=== PATIENT | female | born 1975 | race Caucasian/White ===

== ENCOUNTER 2017-04-16 06:40 | Inpatient (IN) | payer BC ==
[2017-04-16] MEDS ORDERED: ONDANSETRON 4 MG/2 ML VIAL IVP ONE (06:59)
[2017-04-16] MEDS ORDERED: Sodium Chloride 0.9% 1,000 ML PRIMARY IV ONE (06:59)
[2017-04-16] MEDS ORDERED: MORPHINE SULFATE 4 MG/1 ML IVP ONE (06:59)
--- NOTE | 2017-04-16 07:05 | PDOC ---
Nausea/Vomiting/Diarrhea HPI - General Chief Complaint: Nausea / Vomiting / Diarrhea Stated Complaint: VOMITTING/ BODY ACHES/CONGESTION/?HERNIA Date Seen by Provider: 04/16/17 Time Seen by Provider: 07:00 Source: POSITIVE: Patient Exam Limitations: POSITIVE: No limitations Nurse's Notes Reviewed & Considered: Yes - History of Present Illness Initial Comments: Patient comes in this morning with right lower quadrant abdominal pain. Patient with nausea vomiting and diarrhea that have been ongoing since 11:00 yesterday morning. She has myalgias, and headache. She denies any fever chills or sweats, no chest pain no shortness of breath, she does have dysuria. 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 She states this patient is a 90 pound elderly male. Body Location Affected: REPORTS: Abdomen Timing: REPORTS: Abrupt Duration: >24 hours Severity: Moderate Quality: REPORTS: "Pain", Sharpness, Stabbing, Throbbing, Tenderness Abdominal Pain Onset Location: REPORTS: RLQ Abdominal Pain Radiation: REPORTS: Periumbilical Context: REPORTS: Lifting Modifying Factors: improves with: Nothing Associated Symptoms: REPORTS: Vomiting, Diarrhea, Cramping, Aching Similar Symptoms Previously: Yes Recent Care Received: REPORTS: Denies Any Prior Injuries Related to Current Complaint?: No - Patient Home Medications Home Medications: Home Medications Sumatriptan Succinate [Imitrex] 25 mg PO QD #20 tab 06/20/16 Citalopram Hydrobromide [Citalopram HBr] 1 tab PO DAILY #90 tab 11/05/16 Lisinopril 1 tab PO DAILY #90 tab 11/05/16 Montelukast Sodium [Singulair] 1 tab PO DAILY #90 tab 11/05/16 Doxycycline Hyclate 100 mg PO BID #10 cap 04/18/17 Fluticasone Propionate [Flonase Allergy Relief] 9.9 ml NS DAILY #1 spray.susp - Patient Allergies Allergies/Adverse Reactions: Allergies Allergy/AdvReac Type Severity Reaction Status Date / Time citric acid Allergy rash Verified 04/18/17 08:24 codeine Allergy heat Verified 04/18/17 08:24 palpatations erythromycin base Allergy rash Verified 04/18/17 08:24 gluten Allergy stomache Verified 04/18/17 08:24 pain erythromycin lactobionate AdvReac rash Verified 04/18/17 08:24 [From Erythrocin] Penicillins AdvReac rash Verified 04/18/17 08:24 Past Medical History - heen HEENT History: Denies History Cardiovascular History: Hypertension, Previous TN Additional Cardiovasular History: PATIENT DENIES ACTUAL TN, STATES THAT THIS OCCURED IN MOBILE AND THEY SAID IT WAS DUE TO STRESS AND NOT AN TN Respiratory History: Asthma, COPD, Sleep Apnea, Home Oxygen Use, Home CPAP Use, Other (please comment) Additional Respiratory History: ALLERGIES. 2 LITERS IN BIPAP Gastrointestinal History: Celiac Disease Additional Gastrointestinal History: 12/06 HAD INCARCERATED HERNIA REPAIR. PT STATES THEY REMOVED A SMALL PORTION OF HER BOWEL Genitourinary History: Denies History Endocrine History: Denies History Musculoskeletal History: Arthritis, Gout Prosthesis or Implant: No Neurological History: Migraines Additional Neurological History: WEEK AND HALF AGO Blood Disorders: Denies History Psychiatric History: Anxiety Disorders History of Sexually Transmitted Diseases: No Cancer History: Denies History History of MDRO: Unknown History of Other Communicable Diseases: No Alcohol Use: Rarely Substance Use Type: None Previous Surgical History: Yes Type / Date of Surgery: 12/06 INCARCERATED HERNIA WITH BOWEL RESECTION. T&A. GALLBLADDER. ORAL SURGERY. TOTAL HYST. ophorectomy w/ several prior D and C. INGUINAL HERNIA. KIDNEY STONE EXT. UMBILICAL HERNIA Anesthesia Reactions: No Malignant Hyperthermia: No Significant Family History: Cancer Additional Family History: on fallopian tubes ROS - Limitations ROS Limitations: No Limitations Constitution: REPORTS: Denies Symptoms Cardiovascular: REPORTS: Denies Cardiac Symptoms Respiratory: REPORTS: Denies Resp Symptoms Neurological: REPORTS: Denies Neuro Symptoms Gastrointestinal: REPORTS: Abdominal Pain, Nausea, Vomitting, Diarrhea Endocrine: REPORTS: Denies Symptoms Musculoskeletal: REPORTS: Muscle Aches Genitourinary: REPORTS: Dysuria Eyes: REPORTS: Denies Symptoms ENT: REPORTS: Denies Symptoms Skin: REPORTS: Denies Skin Symptoms Lympathic: REPORTS: Denies Lympathic Symptoms Immunologic: POSITIVE: Denies Symptoms Psychiatric: POSITIVE: Denies Psych Symptoms Nausea/Vomiting/Diarrhea Exam - General Appearance General Appearance: POSITIVE: Alert, Cooperative, No Evidence of Trauma, Mild Distress - HEENT HEENT: POSITIVE: Head Inspection Nml, Eyes Inspection Nml, Ears Inspection Nml, Nose Inspection Nml, Oral/Dental Inspect. Nml, Pharynx Inspect. Nml, PERRL, EOMI - Neck Neck: POSITIVE: Supple, Normal Inspection, Non Tender - Respiratory Respiratory: POSITIVE: No Respiratory Distress, Breath Sounds Normal, Chest Non- Tender - Cardiovascular Cardiovascular: POSITIVE: Regular Rate and Rhythm, Heart Sounds Normal, Equal Pulses, Strong Pulses - Chest Chest: POSITIVE: Non Tender - Abdomen Abdomen: Soft: (All Quadrants), No Splenomegaly: (All Quadrants), No Hepatomegaly: (All Quadrants), No Guarding: (All Quadrants), No Rebound: (All Quadrants), No Palpable Pulse: (All Quadrants), No Palpabale Mass: (All Quadrants), No Distention: (All Quadrants), No Rigidity: (All Quadrants), Tenderness Noted: (RLQ), Hyperactive Bowel Sounds: (All Quadrants) - Back Back: POSITIVE: Normal Inspection - Skin Skin: POSITIVE: Intact, Normal For Race, Warm, Dry, No Rash - Extremities Extremity: Non-Tender: (All Extremities), Normal ROM: (All Extremities), Normal Inspection: (All Extremities) - Neurological / Psychological Neurological: POSITIVE: Affect Apporpriate, Oriented X3 N/V/D Progress - Results Reviewed by me Xrays/CTs/US Reviewed by me: Yes Discussed with Radiologist: Yes Lab Results Reviewed: Yes Lab Results:: Laboratory Results 04/16/17 04/16/17 04/16/17 Range/Units 07:05 07:30 07:32 WBC 7.85 (4.8-10.8) 10^3/uL RBC 4.43 (4.20-5.40) 10^6/uL Hgb 13.8 (12.0-16.0) g/dL Hct 40.1 (37.0-47.0) % MCV 90.5 (81-99) FL MCH 31.2 H (27-31) PG MCHC 34.4 (33-37) g/dL RDW Std Deviation 41.7 (39-50) fL RDW Coeff of Saul 12.8 (11.5-14.5) % Plt Count 217 (140-350) 10*3/uL MPV 10.8 (7.4-12.2) FL Immature Gran % (Auto) 0.5 (0-5) % Neut % (Auto) 74.5 (50-80) % Lymph % (Auto) 11.6 (10-50) % [place] % (Auto) 11.0 (5-15) % Eos % (Auto) 1.9 (0-8) % Baso % (Auto) 0.5 (0-1) % Immature Gran # (Auto) 0.04 10*3/UL Neut # (Auto) 5.85 10*3/UL Lymph # (Auto) 0.91 10*3/uL [place] # (Auto) 0.86 H (0.3-0.8) 10*3/UL Eos # (Auto) 0.15 10*3/UL Baso # (Auto) 0.04 10*3/UL WBC Morphology Comment Normal morphology (NORM) Plt Morphology Comment Normal morphology (NORM) RBC Morph Comment Normal morphology (NORM) PT (9.7-11.4) secs INR (0.00-5.90) N/A D-Dimer 0.45 (0.00-0.59) mg/L VBG pH 7.45 H (7.32-7.42) VBG pCO2 33 L (45-55) mmHg VBG HCO3 23 (22-26) mmol/L VBG Base Excess -2 (-2-2) MMOL/L Sodium 138 (135-145) meq/L Potassium 4.3 (3.8-5.2) meq/L Chloride 104 (98-112) meq/L Carbon Dioxide 23 (23-33) meq/L Anion Gap 11 (5-20) BUN 13 (7-22) mg/dL Creatinine 0.8 (0.50-1.20) mg/dL Estimated GFR > 60 (>60 ml/min/1.73m(2)) BUN/Creatinine Ratio 16.25 (6-20) Glucose 121 H (78-110) mg/dL Mean Blood Glucose mg/dL Hemoglobin A1c (4.2-6.0) % Calculated Osmolality 286.0 (267-292) mOsm/kg Lactic Acid 1.4 (0.70-2.10) MMOL/L Calcium 10.8 H (8.7-10.7) mg/dL Magnesium 2.0 (1.6-2.4) mg/dL Total Bilirubin 1.5 H (0.3-1.2) mg/dL AST 29 (8-39) IU/L ALT 49 (9-52) IU/L Alkaline Phosphatase 68 (38-126) IU/L Troponin I (< 0.040) ng/mL C-Reactive Protein 1.4 H (0.0-0.9) mg/dL Total Protein 7.6 (6.1-8.0) g/dL Albumin 4.5 (3.5-4.8) g/dL Globulin 3.1 (2.50-4.10) g/dL Albumin/Globulin Ratio 1.40 (1.3-2.0) mg/g Triglycerides (44-200) mg/dL Cholesterol (120-200) mg/dL LDL Cholesterol, Calc mg/dL VLDL Cholesterol (0-40) mg/dL HDL Cholesterol (40-150) mg/dL Cholesterol/HDL Ratio (0-4.0) RATIO Lipase 58 (23-300) IU/L Ur Collection Type Clean catch urine Urine Color Yellow Urine Clarity Clear (CLEAR) Urine pH 7.5 (5.0-8.5) Ur Specific [place] 1.020 (1.005-1.030) Urine Protein Negative (NEG) mg/dl Urine Glucose (UA) Negative (NEG) mg/dL Urine Ketones Negative (NEG) Urine Occult Blood Negative (NEG) Urine Nitrate Negative (NEG) Urine Bilirubin Negative (NEG) Urine Urobilinogen 1.0 (0.2) EU/dL Ur Leukocyte Esterase Negative (NEG) Ur Culture Indicated? Culture not set 04/16/17 04/16/17 04/16/17 Range/Units 08:20 14:14 16:22 WBC (4.8-10.8) 10^3/uL RBC (4.20-5.40) 10^6/uL Hgb (12.0-16.0) g/dL Hct (37.0-47.0) % MCV (81-99) FL MCH (27-31) PG MCHC (33-37) g/dL RDW Std Deviation (39-50) fL RDW Coeff of Saul (11.5-14.5) % Plt Count (140-350) 10*3/uL MPV (7.4-12.2) FL Immature Gran % (Auto) (0-5) % Neut % (Auto) (50-80) % Lymph % (Auto) (10-50) % [place] % (Auto) (5-15) % Eos % (Auto) (0-8) % Baso % (Auto) (0-1) % Immature Gran # (Auto) 10*3/UL Neut # (Auto) 10*3/UL Lymph # (Auto) 10*3/uL [place] # (Auto) (0.3-0.8) 10*3/UL Eos # (Auto) 10*3/UL Baso # (Auto) 10*3/UL WBC Morphology Comment (NORM) Plt Morphology Comment (NORM) RBC Morph Comment (NORM) PT 10.7 (9.7-11.4) secs INR 1.04 (0.00-5.90) N/A D-Dimer (0.00-0.59) mg/L VBG pH (7.32-7.42) VBG pCO2 (45-55) mmHg VBG HCO3 (22-26) mmol/L VBG Base Excess (-2-2) MMOL/L Sodium (135-145) meq/L Potassium (3.8-5.2) meq/L Chloride (98-112) meq/L Carbon Dioxide (23-33) meq/L Anion Gap (5-20) BUN (7-22) mg/dL Creatinine (0.50-1.20) mg/dL Estimated GFR (>60 ml/min/1.73m(2)) BUN/Creatinine Ratio (6-20) Glucose (78-110) mg/dL Mean Blood Glucose 86.161 mg/dL Hemoglobin A1c 5.17 (4.2-6.0) % Calculated Osmolality (267-292) mOsm/kg Lactic Acid 1.4 (0.70-2.10) MMOL/L Calcium (8.7-10.7) mg/dL Magnesium (1.6-2.4) mg/dL Total Bilirubin (0.3-1.2) mg/dL AST (8-39) IU/L ALT (9-52) IU/L Alkaline Phosphatase (38-126) IU/L Troponin I < 0.012 < 0.012 (< 0.040) ng/mL C-Reactive Protein (0.0-0.9) mg/dL Total Protein (6.1-8.0) g/dL Albumin (3.5-4.8) g/dL Globulin (2.50-4.10) g/dL Albumin/Globulin Ratio (1.3-2.0) mg/g Triglycerides 121 (44-200) mg/dL Cholesterol 160 (120-200) mg/dL LDL Cholesterol, Calc 101.800 mg/dL VLDL Cholesterol 24 (0-40) mg/dL HDL Cholesterol 34 L (40-150) mg/dL Cholesterol/HDL Ratio 4.70 H (0-4.0) RATIO Lipase (23-300) IU/L Ur Collection Type Urine Color Urine Clarity (CLEAR) Urine pH (5.0-8.5) Ur Specific [place] (1.005-1.030) Urine Protein (NEG) mg/dl Urine Glucose (UA) (NEG) mg/dL Urine Ketones (NEG) Urine Occult Blood (NEG) Urine Nitrate (NEG) Urine Bilirubin (NEG) Urine Urobilinogen (0.2) EU/dL Ur Leukocyte Esterase (NEG) Ur Culture Indicated? 04/16/17 04/17/17 Range/Units 20:10 06:27 WBC 5.79 (4.8-10.8) 10^3/uL RBC 4.26 (4.20-5.40) 10^6/uL Hgb 13.3 (12.0-16.0) g/dL Hct 39.4 (37.0-47.0) % MCV 92.5 (81-99) FL MCH 31.2 H (27-31) PG MCHC 33.8 (33-37) g/dL RDW Std Deviation 42.9 (39-50) fL RDW Coeff of Saul 13.0 (11.5-14.5) % Plt Count 191 (140-350) 10*3/uL MPV 10.9 (7.4-12.2) FL Immature Gran % (Auto) 0.9 (0-5) % Neut % (Auto) 64.2 (50-80) % Lymph % (Auto) 18.5 (10-50) % [place] % (Auto) 13.8 (5-15) % Eos % (Auto) 1.6 (0-8) % Baso % (Auto) 1.0 (0-1) % Immature Gran # (Auto) 0.05 10*3/UL Neut # (Auto) 3.72 10*3/UL Lymph # (Auto) 1.07 10*3/uL [place] # (Auto) 0.80 (0.3-0.8) 10*3/UL Eos # (Auto) 0.09 10*3/UL Baso # (Auto) 0.06 10*3/UL WBC Morphology Comment Normal morphology (NORM) Plt Morphology Comment Normal morphology (NORM) RBC Morph Comment Normal morphology (NORM) PT (9.7-11.4) secs INR (0.00-5.90) N/A D-Dimer (0.00-0.59) mg/L VBG pH (7.32-7.42) VBG pCO2 (45-55) mmHg VBG HCO3 (22-26) mmol/L VBG Base Excess (-2-2) MMOL/L Sodium 139 (135-145) meq/L Potassium 4.1 (3.8-5.2) meq/L Chloride 106 (98-112) meq/L Carbon Dioxide 24 (23-33) meq/L Anion Gap 9 (5-20) BUN 8 (7-22) mg/dL Creatinine 0.7 (0.50-1.20) mg/dL Estimated GFR > 60 (>60 ml/min/1.73m(2)) BUN/Creatinine Ratio 11.42 (6-20) Glucose 107 (78-110) mg/dL Mean Blood Glucose mg/dL Hemoglobin A1c (4.2-6.0) % Calculated Osmolality 285.0 (267-292) mOsm/kg Lactic Acid (0.70-2.10) MMOL/L Calcium 10.0 (8.7-10.7) mg/dL Magnesium (1.6-2.4) mg/dL Total Bilirubin (0.3-1.2) mg/dL AST (8-39) IU/L ALT (9-52) IU/L Alkaline Phosphatase (38-126) IU/L Troponin I < 0.012 (< 0.040) ng/mL C-Reactive Protein (0.0-0.9) mg/dL Total Protein (6.1-8.0) g/dL Albumin (3.5-4.8) g/dL Globulin (2.50-4.10) g/dL Albumin/Globulin Ratio (1.3-2.0) mg/g Triglycerides (44-200) mg/dL Cholesterol (120-200) mg/dL LDL Cholesterol, Calc mg/dL VLDL Cholesterol (0-40) mg/dL HDL Cholesterol (40-150) mg/dL Cholesterol/HDL Ratio (0-4.0) RATIO Lipase (23-300) IU/L Ur Collection Type Urine Color Urine Clarity (CLEAR) Urine pH (5.0-8.5) Ur Specific [place] (1.005-1.030) Urine Protein (NEG) mg/dl Urine Glucose (UA) (NEG) mg/dL Urine Ketones (NEG) Urine Occult Blood (NEG) Urine Nitrate (NEG) Urine Bilirubin (NEG) Urine Urobilinogen (0.2) EU/dL Ur Leukocyte Esterase (NEG) Ur Culture Indicated? EKG Interpretation:: POSITIVE: Normal Sinus Rhythm - Patient's Progress Pain Medication Addressed: POSITIVE: Yes School/Work Release Addressed: POSITIVE: Yes Status: POSITIVE: Improved MDM / ED Course: Patient was examined, an IV started, blood drawn and sent to the lab for studies , radiographic and EKG studies were obtained. During the patient's time. Emergency room she developed chest pain therefore EKG and chest x-rays were obtained as well as troponin. Findings: Troponin is normal, d-dimer is normal, ABC is unremarkable. While awaiting results of CT scan my shift ended and I turned over care to Dr. Abdifatah Mojica. Assessment: This is a case of abdominal pain with nausea and vomiting. She also has chest pain that is relieved with nitroglycerin. Plan: Please see Dr. Mojica's dictation for plan, I have contacted Dr. Paris for admission pending results of CT scan. Patient Care Time - Estimated PCT Patient Care Time (In Minutes): 45 Vital Signs - VS Reviewed Vital Signs Reviewed: Yes Discharge Clinical Impression: Abdominal pain, Chest pain Discharge Disposition: Admit to Observation Condition: Fair
[2017-04-16 07:39] LABS: VENOUS PH 7.45 (7.32-7.42)
[2017-04-16 07:56] LABS: BASOPHILS # (AUTO) 0.04 10*3/UL; BASOPHILS % (AUTO) 0.5 % (0-1); EOSINOPHILS # (AUTO) 0.15 10*3/UL; EOSINOPHILS % (AUTO) 1.9 % (0-8); HEMATOCRIT 40.1 % (37.0-47.0); HEMOGLOBIN 13.8 g/dL (12.0-16.0); LYMPHOCYTES # (AUTO) 0.91 10*3/uL; MEAN CORPUSCULAR HEMOGLOBIN 31.2 PG (27-31); MEAN CORPUSCULAR HGB CONC 34.4 g/dL (33-37); MEAN CORPUSCULAR VOLUME 90.5 FL (81-99); MEAN PLATELET VOLUME 10.8 FL (7.4-12.2); MONOCYTES # (AUTO) 0.86 10*3/UL (0.3-0.8); NEUTROPHILS # (AUTO) 5.85 10*3/UL; NEUTROPHILS % (AUTO) 74.5 % (50-80); RED BLOOD COUNT 4.43 10^6/uL (4.20-5.40)
[2017-04-16 07:58] LABS: PLATELET MORPHOLOGY COMMENT NORMAL MORPHOLOGY (NORM); RBC MORPHOLOGY COMMENT NORMAL MORPHOLOGY (NORM); WBC MORPHOLOGY COMMENT NORMAL MORPHOLOGY (NORM)
[2017-04-16 07:59] LABS: BILIRUBIN,URINE NEGATIVE (NEG); CLARITY,URINE CLEAR (CLEAR); COLOR,URINE YELLOW; GLUCOSE, URINE (UA) NEGATIVE (NEG); NITRATE,URINE NEGATIVE (NEG); OCCULT BLOOD,URINE NEGATIVE (NEG); PH,URINE 7.5 (5.0-8.5); PROTEIN,URINE NEGATIVE (NEG)
[2017-04-16 08:12] LABS: BLOOD UREA NITROGEN 13 mg/dL (7-22); BUN/CREATININE RATIO 16.25 (6-20); C-REACTIVE PROTEIN 1.4 mg/dL (0.0-0.9); CALCIUM 10.8 mg/dL (8.7-10.7); EST GLOMERULAR FILTRATION > 60 (>60 ml/min/1.73m(2)); LIPASE 58 IU/L (23-300); SERUM ALBUMIN 4.5 g/dL (3.5-4.8)
[2017-04-16] MEDS ORDERED: ASPIRIN 81 MG (BABY) CHEWABLE TABLET PO ONE (08:15)
[2017-04-16] MEDS ORDERED: ASPIRIN 81 MG (BABY) CHEWABLE TABLET ONE (08:19)
[2017-04-16] MEDS ORDERED: NITROGLYCERIN 0.4 MG SL TAB (BOTTLE OF 3) SL ONE (08:19)
[2017-04-16] MEDS: NITROGLYCERIN 0.4 MG SL TAB (BOTTLE OF 3) SL ONE ×3 (08:21→08:31)
--- NOTE | 2017-04-16 08:23 | EKG ---
[address] [place] [address] Measurements Intervals [place] Rate: 94 P: 76 [place]: 166 QRS: -16 QRSD: 98 T: 55 QT: 369 QTc: 421 Interpretive Statements SINUS RHYTHM Compared to ECG 12/09/2015 00:15:57 Right ventricular hypertrophy no longer present ST (T wave) deviation no longer present Atrial abnormality no longer present Electronically Signed On 04-16-17 12:54:16 MDT by Raul Rushing [email or web address]
--- NOTE | 2017-04-16 09:05 | DI ---
XR CXR 1VW,04/16/2017 8:14 AM: Clinical History: Chest pain Previous Exam: None at this facility. Findings: A single frontal radiograph of the chest is obtained, and demonstrates clear lungs. There is mild car diomegaly. Overlying EKG leads are seen. Impression: No acute disease.
--- NOTE | 2017-04-16 09:46 | DI ---
CT CTA CHEST NONCORONARY W/WO,04/16/2017 8:44 AM: Clinical History: New onset of chest pain and shortness of breath. Previous Exam: None at this facility. Findings: Multiple helically acquired CT images are obtained through the chest following a CT chest angiogram p rotocol, and demonstrate some subsegmental atelectasis in the lung bases. The pulmonary arteries are normal without filling defect or truncation to suggest pulmonary embolism. There is a 3.4 cm simple cyst noted within the superior pole of the left kidney. Diffuse degenerative changes of the spine are noted. Endplate degenerative changes are noted as well. Impression: 1. No evidence of pulmonary embolism.
--- NOTE | 2017-04-16 09:53 | DI ---
CT ABD W/CN AND PELVIS W/CN,04/16/2017 6:59 AM: Clinical History: Right lower quadrant pain Previous Exam: December 09, 2015 Findings: Multiple helically acquired CT images are obtained through the abdomen and pelvis following the intra venous administration of 95 cc of Isovue 300, and demonstrate diffuse degenerative changes of the lum bar spine. There is some facet arthropathy noted. There are defects involving the anterior abdominal wall one of these was to the left of midline and w as seen on the prior exam is still visible, but is smaller and contains a very small segment of small bowel. There is a new larger ventral hernia measuring 4.4 cm just to the right of midline with protrusion of omental fat and multiple loops of small bowel. Patient is status post cholecystectomy. The urinary bladder is unremarkable. There is no free air nor free fluid. There is no mesenteric or retroperitoneal lymphadenopathy. The appendix is normal. There is no evidence of small bowel obstruction. There are a few prominent mesenteric lymph nodes, but these are stable when compared with the examina tion from 2016. There is no free air. The lung bases are clear. Impression: 1. Very small residual hernia to the left of midline containing a very short segment of small bowel w ithout obstruction. 2. New 4.4 cm hernia to the right of midline containing multiple loops of small bowel.
[2017-04-16] MEDS ORDERED: NORMAL SALINE 10 ML SYRINGE FLUSH IVP PRN (10:23)
[2017-04-16] MEDS ORDERED: ONDANSETRON 4 MG/2 ML VIAL IVP PRN (10:23)
[2017-04-16] MEDS ORDERED: NITROGLYCERIN 0.4 MG SL TAB (BOTTLE OF 3) SL PRN (10:23)
[2017-04-16] MEDS ORDERED: SUMAtriptan Tab 25 MG TAB PO PRN (10:23)
[2017-04-16] MEDS ORDERED: LIDOCAINE W/ SODIUM BICARB 0.5 ML SYR SUBD PRN (10:23)
[2017-04-16 10:36] LABS: CHOL/HDL RATIO 4.7 RATIO (0-4.0); LDL CHOLESTEROL,CALCULATED 101.8 mg/dL
--- NOTE | 2017-04-16 15:42 | PDOC ---
History and Physical - History of Present Illness Date and Time of Service: 04/16/2017, 1535 Chief Complaint: Patient seen and evaluated earlier with the complaint of nausea , vomiting and abdominal pain History of Present Illness: This very pleasant 41-year-old female who has morbid obesity, obstructive sleep apnea, amongst other issues, who states that she developed nausea and vomiting fairly acutely last night. She noticed some right lower quadrant pain in the mid quadrant and lower quadrant. It was somewhat close to the umbilicus. She' s had a cholecystectomy in the past, a hysterectomy, and a hernia repaired in the past that was incarcerated. It was an incisional hernia and was umbilical. The patient wondered if those 2 were related, but denied any changes in bowel movements. She had some mild tenderness to palpation on exam, but otherwise no other symptoms. She felt flushed, but ran a temperature of around 98-99. She has had incarcerated hernias before and thought this might be giving her problems now or that she had developed a new one. She had some chest pain that responded to nitroglycerin in relation to the nausea and vomiting and all of her symptoms seem to be better later this morning from when she presented in the emergency room. IV fluids and nitroglycerin seemed to help the most. Past Medical History Medical History: Migraines. Depression. COPD. Anxiety. Celiac disease. Sleep apnea. Hypertension. Asthma. Morbid obesity with body mass index greater than 50 Surgical History: Laparoscopic oophorectomy. Laparoscopic-assisted hysterectomy. Umbilical/incisional herniorrhaphy. Laparoscopic cholecystectomy. Pertinent Family History: No major problems of heart disease in the family. Past Social History: Does not smoke or have children. She is . 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 Occasionally drinks alcohol but rarely. Tobacco Use: Never Smoker Substance Use Type: None Alcohol Use: Rarely Medication / Allergies Home Medications: Home Medications Medication Instructions Recorded Confirmed Type Promethazine HCl 1 tab PO Q4-6H #30 tab 06/20/16 04/16/17 [facility] Sumatriptan Succinate [Imitrex] 25 mg PO QD #20 tab 06/20/16 04/16/17 Clinic Citalopram Hydrobromide 1 tab PO DAILY #90 tab 11/05/16 04/16/17 Clinic [Citalopram Hbr] Lisinopril 1 tab PO DAILY #90 tab 11/05/16 04/16/17 Clinic Montelukast Sodium [Singulair] 1 tab PO DAILY #90 tab 11/05/16 04/16/17 Clinic Plexus Slim 1 unit PO DAILY 04/16/17 04/16/17 History Allergies/Adverse Reactions: Allergies Allergy/AdvReac Type Severity Reaction Status Date / Time citric acid Allergy rash Verified 04/16/17 10:50 codeine Allergy heat Verified 04/16/17 10:50 palpatations erythromycin base Allergy rash Verified 04/16/17 10:50 gluten Allergy stomache Verified 04/16/17 10:50 pain erythromycin lactobionate AdvReac rash Verified 04/16/17 10:50 [From Erythrocin] Penicillins AdvReac rash Verified 04/16/17 10:50 Review of Systems - Review of Systems All Systems: Reviewed & No Additional Complaints Except as Stated (I did a 12 point review systems and it was negative other than that discussed in history of present illness and then noted below.) - Constitutional Constitutional: REPORTS: Fever/Chills (No fevers but did have chills) - Respiratory Respiratory: DENIES: Negative System Review, Cough, Sputum, Dyspnea At Rest, Dyspnea with Exertion, Pleuritic Pain, Hemoptysis, Wheezing, Other, See HPI - Cardiovascular Cardiovascular: REPORTS: Chest Pain (Atypical and in the setting of nausea and vomiting. Resolved with nitroglycerin and has not recurred since.) - Gastrointestinal Gastrointestinal / Abdominal: REPORTS: Nausea, Vomiting, Abdominal Pain - Genitourinary Genitourinary: DENIES: Negative System Review, Pain, Burning, Hematuria, Incontinence, Urgency, Hesitant Stream, Decreased Stream, Nocutria, Discharge, Sexual Dyfunction, Other, See HPI - Musculoskeletal Musculoskeletal: REPORTS: Joint Pain - Hips (Joint pain in her hips.) - Neurological Neurologic: DENIES: Negative System Review, Headache, Numbness/Paresthesia, Tremors, Weakness, Seizures, Head Trauma, LOC, Dizziness, Confusion, Memory Loss , Difficulty Walking, Incoordination, Other, See HPI - Additonal Details Additional ROS Details: Has sleep apnea and is BiPAP dependent at night. Exam - Vitals Vital Signs: Vital Signs Temperature 98.0 F Temperature Source Temporal Artery Scan Pulse Rate [Pulse Oximeter] 87 Pulse Rate 89 Respiratory Rate 20 Blood Pressure [Left Radial 125/69 Artery] Blood Pressure 144/82 Pulse Ox 94 Oxygen Delivery Method Room Air Height 4 ft 9 in Weight 269 lb 6.4 oz - General General Appearance: POSITIVE: No Acute Distress, Cooperative, Morbidly Obese Additional General Exam Details: Appears pickwickian on exam. - Head Head Exam: POSITIVE: Normal Inspection, Normocephalic, Atraumatic - Eye Eye Exam: POSITIVE: No Scleral Icterus - ENT ENT Exam: POSITIVE: Normal Exam, Mucous Membranes Dry - Neck Neck Exam: POSITIVE: Normal Inspection, No Tenderness, No Thyromegaly - Respiratory Respiratory Exam: POSITIVE: Clear to Auscultation - Bilaterally, Breathing Non Labored, Normal to Percussion and Palpation - Cardiovascular Cardiovascular Exam: POSITIVE: RRR, No Murmur, No Clicks, No Gallops, No Rubs, No JVD - GI/Abdominal GI/Abdominal Exam: POSITIVE: Normal Bowel Sounds, Non Distended, Soft, Hernia ( Patient has apparent umbilical hernia. Somewhat tender to the right and lower than the umbilicus on exam.) - Rectal Rectal Exam: POSITIVE: Deferred - External Exam: POSITIVE: Deferred Exam: POSITIVE: Deferred - Extremities Extremities Exam: POSITIVE: No Clubbing Present, No Edema Present, No Cyanosis Present - Back Back Exam: POSITIVE: Normal Inspection, No CVA Tenderness - Neurological Neurological Exam: POSITIVE: Alert, Oriented x 3, No Facial Droop, Speech Intact / Clear, Moves All Extremities Equally - Psychiatric Psychiatric Exam: POSITIVE: Normal Affect, Normal Mood Results - Labs CBC and BMP: 04/16/17 07:30 04/16/17 07:30 Labs - Last 24 Hours: Laboratory Results 04/16/17 Range/Units 14:14 Troponin I < 0.012 (< 0.040) ng/mL Laboratory Results 04/16/17 04/16/17 04/16/17 Range/Units 07:05 07:30 07:32 WBC 7.85 (4.8-10.8) 10^3/uL RBC 4.43 (4.20-5.40) 10^6/uL Hgb 13.8 (12.0-16.0) g/dL Hct 40.1 (37.0-47.0) % MCV 90.5 (81-99) FL MCH 31.2 H (27-31) PG MCHC 34.4 (33-37) g/dL RDW Std Deviation 41.7 (39-50) fL RDW Coeff of Saul 12.8 (11.5-14.5) % Plt Count 217 (140-350) 10*3/uL MPV 10.8 (7.4-12.2) FL Immature Gran % (Auto) 0.5 (0-5) % Neut % (Auto) 74.5 (50-80) % Lymph % (Auto) 11.6 (10-50) % Placer % (Auto) 11.0 (5-15) % Eos % (Auto) 1.9 (0-8) % Baso % (Auto) 0.5 (0-1) % Immature Gran # (Auto) 0.04 10*3/UL Neut # (Auto) 5.85 10*3/UL Lymph # (Auto) 0.91 10*3/uL Placer # (Auto) 0.86 H (0.3-0.8) 10*3/UL Eos # (Auto) 0.15 10*3/UL Baso # (Auto) 0.04 10*3/UL WBC Morphology Comment Normal morphology (NORM) Plt Morphology Comment Normal morphology (NORM) RBC Morph Comment Normal morphology (NORM) D-Dimer 0.45 (0.00-0.59) mg/L VBG pH 7.45 H (7.32-7.42) VBG pCO2 33 L (45-55) mmHg VBG HCO3 23 (22-26) mmol/L VBG Base Excess -2 (-2-2) MMOL/L Sodium 138 (135-145) meq/L Potassium 4.3 (3.8-5.2) meq/L Chloride 104 (98-112) meq/L Carbon Dioxide 23 (23-33) meq/L Anion Gap 11 (5-20) BUN 13 (7-22) mg/dL Creatinine 0.8 (0.50-1.20) mg/dL Estimated GFR > 60 (>60 ml/min/1.73m(2)) BUN/Creatinine Ratio 16.25 (6-20) Glucose 121 H (78-110) mg/dL Calculated Osmolality 286.0 (267-292) mOsm/kg Lactic Acid 1.4 (0.70-2.10) MMOL/L Calcium 10.8 H (8.7-10.7) mg/dL Magnesium 2.0 (1.6-2.4) mg/dL Total Bilirubin 1.5 H (0.3-1.2) mg/dL AST 29 (8-39) IU/L ALT 49 (9-52) IU/L Alkaline Phosphatase 68 (38-126) IU/L Troponin I (< 0.040) ng/mL C-Reactive Protein 1.4 H (0.0-0.9) mg/dL Total Protein 7.6 (6.1-8.0) g/dL Albumin 4.5 (3.5-4.8) g/dL Globulin 3.1 (2.50-4.10) g/dL Albumin/Globulin Ratio 1.40 (1.3-2.0) mg/g Triglycerides (44-200) mg/dL Cholesterol (120-200) mg/dL LDL Cholesterol, Calc mg/dL VLDL Cholesterol (0-40) mg/dL HDL Cholesterol (40-150) mg/dL Cholesterol/HDL Ratio (0-4.0) RATIO Lipase 58 (23-300) IU/L Ur Collection Type Pending Urine Color Yellow Urine Clarity Clear (CLEAR) Urine pH 7.5 (5.0-8.5) Ur Specific [place] 1.020 (1.005-1.030) Urine Protein Negative (NEG) mg/dl Urine Glucose (UA) Negative (NEG) mg/dL Urine Ketones Negative (NEG) Urine Occult Blood Negative (NEG) Urine Nitrate Negative (NEG) Urine Bilirubin Negative (NEG) Urine Urobilinogen 1.0 (0.2) EU/dL Ur Leukocyte Esterase Negative (NEG) Ur Culture Indicated? Pending 04/16/17 04/16/17 Range/Units 08:20 14:14 WBC (4.8-10.8) 10^3/uL RBC (4.20-5.40) 10^6/uL Hgb (12.0-16.0) g/dL Hct (37.0-47.0) % MCV (81-99) FL MCH (27-31) PG MCHC (33-37) g/dL RDW Std Deviation (39-50) fL RDW Coeff of Saul (11.5-14.5) % Plt Count (140-350) 10*3/uL MPV (7.4-12.2) FL Immature Gran % (Auto) (0-5) % Neut % (Auto) (50-80) % Lymph % (Auto) (10-50) % Placer % (Auto) (5-15) % Eos % (Auto) (0-8) % Baso % (Auto) (0-1) % Immature Gran # (Auto) 10*3/UL Neut # (Auto) 10*3/UL Lymph # (Auto) 10*3/uL Placer # (Auto) (0.3-0.8) 10*3/UL Eos # (Auto) 10*3/UL Baso # (Auto) 10*3/UL WBC Morphology Comment (NORM) Plt Morphology Comment (NORM) RBC Morph Comment (NORM) D-Dimer (0.00-0.59) mg/L VBG pH (7.32-7.42) VBG pCO2 (45-55) mmHg VBG HCO3 (22-26) mmol/L VBG Base Excess (-2-2) MMOL/L Sodium (135-145) meq/L Potassium (3.8-5.2) meq/L Chloride (98-112) meq/L Carbon Dioxide (23-33) meq/L Anion Gap (5-20) BUN (7-22) mg/dL Creatinine (0.50-1.20) mg/dL Estimated GFR (>60 ml/min/1.73m(2)) BUN/Creatinine Ratio (6-20) Glucose (78-110) mg/dL Calculated Osmolality (267-292) mOsm/kg Lactic Acid (0.70-2.10) MMOL/L Calcium (8.7-10.7) mg/dL Magnesium (1.6-2.4) mg/dL Total Bilirubin (0.3-1.2) mg/dL AST (8-39) IU/L ALT (9-52) IU/L Alkaline Phosphatase (38-126) IU/L Troponin I < 0.012 < 0.012 (< 0.040) ng/mL C-Reactive Protein (0.0-0.9) mg/dL Total Protein (6.1-8.0) g/dL Albumin (3.5-4.8) g/dL Globulin (2.50-4.10) g/dL Albumin/Globulin Ratio (1.3-2.0) mg/g Triglycerides 121 (44-200) mg/dL Cholesterol 160 (120-200) mg/dL LDL Cholesterol, Calc 101.800 mg/dL VLDL Cholesterol 24 (0-40) mg/dL HDL Cholesterol 34 L (40-150) mg/dL Cholesterol/HDL Ratio 4.70 H (0-4.0) RATIO Lipase (23-300) IU/L Ur Collection Type Urine Color Urine Clarity (CLEAR) Urine pH (5.0-8.5) Ur Specific [place] (1.005-1.030) Urine Protein (NEG) mg/dl Urine Glucose (UA) (NEG) mg/dL Urine Ketones (NEG) Urine Occult Blood (NEG) Urine Nitrate (NEG) Urine Bilirubin (NEG) Urine Urobilinogen (0.2) EU/dL Ur Leukocyte Esterase (NEG) Ur Culture Indicated? - EKG Data -: EKG Interpreted by Me Rate: Normal EKG Shows Normal: Sinus Rhythm - EKG Data EKG Interpretation: Normal EKG - Imaging Status: Image Reviewed by Me (I looked at the CT scan, and noted that it was under a different name and then that registered in the system, Demlis Chu. Once I checked on the CT scan, I can see that there is a fairly large bowel containing paraumbilical hernia.) Assessment and Plan - Patient Problems (1) Nausea and vomiting Current Visit: Yes Status: Acute Qualifiers: Vomiting type: unspecified Vomiting Intractability: non-intractable Qualified Description: Non-intractable vomiting with nausea, unspecified vomiting type Qualifier Code(s): (R11.2) Nausea with vomiting, unspecified (2) Paraumbilical hernia Current Visit: Yes Status: Acute (3) Morbid obesity Current Visit: Yes Status: Acute Qualifiers: Obesity type: due to excess calories Qualified Description: Morbid obesity due to excess calories Qualifier Code(s): (E66.01) Morbid (severe ) obesity due to excess calories (4) Migraine headache Current Visit: Yes Status: Chronic Qualifiers: Migraine type: unspecified Status migrainosus presence: without status migrainosus Intractability: not intractable Qualified Description: Migraine without status migrainosus, not intractable, unspecified migraine type Qualifier Code(s): (G43.909) Migraine, unspecified, not intractable, without status migrainosus (5) Arthritis Current Visit: Yes Status: Acute (6) Hyperparathyroidism Current Visit: Yes Status: Acute - Assessment / Plan Additional Assessment/Plan Details: Admit the patient. I will have her admitted as observation. I don't know that this is an incarcerated hernia, but will consult surgery to examine the patient. Antiemetics for nausea. IV fluids. I spoke at length to the patient, her , her mother and father, regarding dietary interventions for morbid obesity. I think if this does not work for this patient, gastric bypass may need to be considered given the patient's body mass index and comorbidities. I did notice looking at things that the patient is hypercalcemic and has been for the past year, and has an elevated intact PTH. I think she needs to have a parathyroid uptake scan to determine if she has a parathyroid adenoma. Given her young age, hysterectomy status, and lack of ovaries, I think she should have this surgically addressed. Her vitamin D is notably normal. She's had contrast, so I think we'll need to wait probably 4-6 weeks before we can get an uptake scan and then schedule her with a surgeon for review/and primary care provider for review. Her glucose was elevated, I think we should get a screening hemoglobin A1c. Discussed above plan in detail with the patient, and her family, and they all agreed to the plan.
[2017-04-16 16:34] LABS: HEMOGLOBIN A1C 5.17 % (4.2-6.0)
[2017-04-16 16:40] LABS: URINE SAMPLE TYPE CLEAN CATCH URINE
[2017-04-16] MEDS: Sodium Chloride 0.9% 1,000 ML PRIMARY IV SCH (16:40)
[2017-04-16] MEDS ORDERED: HYDROcodone-APAP 5 MG -325 MG TABLET PO PRN (17:48)
--- NOTE | 2017-04-16 17:57 | CONSULT ---
Consult Note - Consult Consult Date: 04/16/17 Reason for Consult: PreOp Consulation : General Surgery Requesting Physician: Dr. Grossman Primary Care Provider: James John MD - History of Present Illness History of Present Illness: Patient is a morbidly obese 41-year-old female who I'm asked to see for recurrent hernia in the umbilical region. Patient reports she's had discomfort in the umbilical area for several weeks to a month. She has some pain when she lifts. She has felt a bulge for at least a couple of weeks. Last night she developed a headache, myalgias, nausea, vomiting, diarrhea, and felt feverish. Patient reports she vomited at least 6 times through the night. She presented to the emergency room. Lab work was normal. CT scan showed a hernia in the subumbilical region containing fat and multiple loops of small bowel. There is no transition point and no evidence of an obstruction. I have personally reviewed the CT and discussed it with our local radiologist. Patient's nausea and vomiting has resolved. She had a bowel movement last approximately 4:30 AM. She last passed gas yesterday evening. She has not eaten in hours. She reports the pain feels like her last hernia. She denies any severe pain. It is mostly a discomfort. Patient has had multiple surgeries in the umbilical region. Most recently I did a recurrent incisional herniorrhaphy in November 2015. This was for acute bowel obstruction from her hernia. My note states that the fascia looked good. The defect was closed with #1 Prolene. Mesh was not placed. My report does not mention any evidence of mesh. Through this same area patient has had a laparoscopic cholecystectomy, a laparoscopy, an open hysterectomy, and incisional hernia, and a recurrent incisional herniorrhaphy. I'm asked to see her for evaluation. Review of Systems - Gastrointestinal Gastrointestinal / Abdominal: REPORTS: See HPI Past Medical History Medical History: Migraines. Depression. COPD. Anxiety. Celiac disease. Sleep apnea. Hypertension. Asthma. Morbid obesity with body mass index greater than 50 Surgical History: Laparoscopic cholecystectomy. Laparoscopy. Open hysterectomy. Incisional herniorrhaphy. Recurrent incisional herniorrhaphy. Knee arthroscopy. Pertinent Family History: No major problems of heart disease in the family. Past Social History: Does not smoke or have children. She is . 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 Occasionally drinks alcohol but rarely. Tobacco Use: Never Smoker Substance Use Type: None Alcohol Use: Rarely Medication / Allergies Home Medications: Home Medications Medication Instructions Recorded Confirmed Type Promethazine HCl 1 tab PO Q4-6H #30 tab 06/20/16 04/16/17 [facility] Sumatriptan Succinate [Imitrex] 25 mg PO QD #20 tab 06/20/16 04/16/17 Clinic Citalopram Hydrobromide 1 tab PO DAILY #90 tab 11/05/16 04/16/17 Clinic [Citalopram Hbr] Lisinopril 1 tab PO DAILY #90 tab 11/05/16 04/16/17 Clinic Montelukast Sodium [Singulair] 1 tab PO DAILY #90 tab 11/05/16 04/16/17 Clinic Plexus Slim 1 unit PO DAILY 04/16/17 04/16/17 History Allergies/Adverse Reactions: Allergies Allergy/AdvReac Type Severity Reaction Status Date / Time citric acid Allergy rash Verified 04/16/17 10:50 codeine Allergy heat Verified 04/16/17 10:50 palpatations erythromycin base Allergy rash Verified 04/16/17 10:50 gluten Allergy stomache Verified 04/16/17 10:50 pain erythromycin lactobionate AdvReac rash Verified 04/16/17 10:50 [From Erythrocin] Penicillins AdvReac rash Verified 04/16/17 10:50 Exam - Vitals Vital Signs: Vital Signs Temperature 99.4 F Temperature Source Temporal Artery Scan Pulse Rate [Pulse Oximeter] 96 Pulse Rate 93 Respiratory Rate 22 Blood Pressure [Left Radial 137/99 Artery] Blood Pressure 144/82 Pulse Ox 92 Oxygen Delivery Method Room Air Height 4 ft 9 in Weight 122.198 kg - General General Appearance: POSITIVE: No Acute Distress - Respiratory Respiratory Exam: POSITIVE: Clear to Auscultation - Bilaterally, Breathing Non Labored - Cardiovascular Cardiovascular Exam: POSITIVE: RRR, No Murmur - GI/Abdominal GI/Abdominal Exam: POSITIVE: Non Distended, Soft, Hernia (Recurrent incisional hernia near the umbilicus.), Diminished Bowel Sounds Additional GI/Abdominal Exam Details: The patient is morbidly obese. Patient has a recurrent incisional hernia near the umbilicus. Predominantly to the right. It is best felt when the patient is standing but is palpable in the supine position. It is tender but not acutely tender. It is not reducible. Other than morbid obesity the remainder of the abdominal exam is unremarkable. - Rectal Rectal Exam: POSITIVE: Deferred - Neurological Neurological Exam: POSITIVE: Alert, Oriented x 3 - Psychiatric Psychiatric Exam: POSITIVE: Normal Affect, Normal Mood - Integumentary Integumentary Exam: POSITIVE: Normal Color, Warm Results - Labs CBC and BMP: 04/16/17 07:30 04/16/17 07:30 Labs - Last 24 Hours: Laboratory Results 04/16/17 04/16/17 Range/Units 14:14 16:22 PT 10.7 (9.7-11.4) secs INR 1.04 (0.00-5.90) N/A Mean Blood Glucose 86.161 mg/dL Hemoglobin A1c 5.17 (4.2-6.0) % Lactic Acid 1.4 (0.70-2.10) MMOL/L Troponin I < 0.012 (< 0.040) ng/mL - Imaging Status: Image Reviewed by Me (With the radiologist.), Report Reviewed by Me Assessment and Plan - Patient Problems (1) Recurrent incisional hernia Current Visit: Yes Status: Chronic Priority: Medium Comment: Sounds as though this has been present for at least several weeks. It is probably incarcerated but there is no evidence of a bowel obstruction or compromised bowel, i.e. strangulation. I think it's reasonable to feed her but would start with a clear liquid diet tonight. If she tolerates that I would advance her diet in the morning. If she doesn't tolerate the clear liquids please call me. I have discussed this case with Dr. Grossman. It's not unreasonable to give her oral pain medications if the pain is bothering her. If she is doing well she should be discharged home for outpatient follow-up. We need to discuss the nature of a future surgery in detail. It would be a much more complex operation than her prior hernia repairs. She may benefit from a tertiary care center for an abdominal wall component procedure versus a laparoscopic ventral herniorrhaphy. I told her I could offer her an open herniorrhaphy with Marlex mesh placement. We also discussed that she would benefit and decrease her recurrence if she lost a lot of weight. We will discuss all that in detail in the office.
--- NOTE | 2017-04-16 20:37 | PDOC ---
Abdomen/Flank HPI - General Chief Complaint: Nausea / Vomiting / Diarrhea Stated Complaint: VOMITTING/ BODY ACHES/CONGESTION/?HERNIA Date Seen by Provider: 04/16/17 Time Seen by Provider: 09:00 Source: POSITIVE: Patient, RN/MD, Old records Exam Limitations: POSITIVE: No limitations Nurse's Notes Reviewed & Considered: Yes - History of Present Illness Initial Comments: The patient is a 41 year old female. She presented to the emergency room with vomiting and abdominal pain. Patient was initially seen in the emergency room by the emergency room physician tombstone erector helper at that time, Dr. Jorge, who began the evaluation. I assumed care of the patient at 9 AM. Patient also developed some chest pain after she was admitted to the emergency room. Patient states that she awoke yesterday evening around 10:30 PM with nausea vomiting and "my jaw is hurting". She also had diffuse myalgia. She furthermore had paraumbilical pain. Patient has a history of an umbilical hernia, which incarcerated and strangulated and was repaired surgically on 06 December. Patient states her present pain is very similar to what she had during that episode. She of hypertension for which she takes lisinopril 10 mg daily. She' s had a cholecystectomy and a hysterectomy in addition to a strangulated umbilical hernia repair. 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) Severity: Moderate Quality: REPORTS: "Pain" Abdominal Pain Onset Location: REPORTS: Periumbilical Abdominal Pain Radiation: REPORTS: No radiation Context: REPORTS: None Modifying Factors: improves with: Vomiting, Palpation Associated Symptoms: REPORTS: Chest pain, Vomiting Similar Symptoms Previously: Yes (with previous incarcerated hernia as above.) Recent Care Received: REPORTS: Denies Any Prior Injuries Related to Current Complaint?: No - Patient Home Medications Home Medications: Home Medications Promethazine HCl 1 tab PO Q4-6H #30 tab 06/20/16 Sumatriptan Succinate [Imitrex] 25 mg PO QD #20 tab 06/20/16 Citalopram Hydrobromide [Citalopram Hbr] 1 tab PO DAILY #90 tab 11/05/16 Lisinopril 1 tab PO DAILY #90 tab 11/05/16 Montelukast Sodium [Singulair] 1 tab PO DAILY #90 tab 11/05/16 Plexus Slim 1 unit PO DAILY 04/16/17 - Patient Allergies Allergies/Adverse Reactions: Allergies Allergy/AdvReac Type Severity Reaction Status Date / Time citric acid Allergy rash Verified 04/16/17 10:50 codeine Allergy heat Verified 04/16/17 10:50 palpatations erythromycin base Allergy rash Verified 04/16/17 10:50 gluten Allergy stomache Verified 04/16/17 10:50 pain erythromycin lactobionate AdvReac rash Verified 04/16/17 10:50 [From Erythrocin] Penicillins AdvReac rash Verified 04/16/17 10:50 Past Medical History - isabelen HEENT History: Denies History Cardiovascular History: Hypertension, Previous [place] Additional Cardiovasular History: PATIENT DENIES ACTUAL [place], STATES THAT THIS OCCURED IN [place] AND THEY SAID IT WAS DUE TO STRESS AND NOT AN [place] Respiratory History: Asthma, COPD, Sleep Apnea, Home Oxygen Use, Home CPAP Use, Other (please comment) Additional Respiratory History: ALLERGIES. 2 LITERS IN BIPAP Gastrointestinal History: Celiac Disease Additional Gastrointestinal History: 12/06 HAD INCARCERATED HERNIA REPAIR. PT STATES THEY REMOVED A SMALL PORTION OF HER BOWEL Genitourinary History: Denies History Endocrine History: Denies History Musculoskeletal History: Arthritis, Gout Prosthesis or Implant: No Neurological History: Migraines Additional Neurological History: WEEK AND HALF AGO Blood Disorders: Denies History Psychiatric History: Anxiety Disorders History of Sexually Transmitted Diseases: No Female Reproductive History: Hysterectomy Additional Female Reproductive History: ENDOMETRIOSIS 2008 LMP: 2008 Obstetrical History: Denies History Cancer History: Denies History In Past Year Been Physically Harmed or Verbally Threatened: No History of MDRO: No History of Other Communicable Diseases: No Tobacco Use: Never Smoker Alcohol Use: Rarely Substance Use Type: None Previous Surgical History: Yes Type / Date of Surgery: 12/06 INCARCERATED HERNIA WITH BOWEL RESECTION. T&A. GALLBLADDER. ORAL SURGERY. TOTAL HYST. ophorectomy w/ several prior D and C. INGUINAL HERNIA. KIDNEY STONE EXT. UMBILICAL HERNIA Anesthesia Reactions: No Malignant Hyperthermia: No Significant Family History: Cancer Additional Family History: on fallopian tubes Past Medical History Reviewed: Reviewed - No Changes ROS - Limitations ROS Limitations: No Limitations Constitution: REPORTS: Denies Symptoms Cardiovascular: REPORTS: Chest Pain Respiratory: REPORTS: Denies Resp Symptoms Neurological: REPORTS: Denies Neuro Symptoms Gastrointestinal: REPORTS: Abdominal Pain, Vomitting Endocrine: REPORTS: Denies Symptoms Musculoskeletal: REPORTS: Denies MS Symptoms Genitourinary: REPORTS: Denies Symptoms Eyes: REPORTS: Denies Symptoms ENT: REPORTS: Denies Symptoms Skin: REPORTS: Denies Skin Symptoms Lympathic: REPORTS: Denies Lympathic Symptoms Immunologic: POSITIVE: Denies Symptoms Psychiatric: POSITIVE: Denies Psych Symptoms Abdominal/Flank Pain PE - General Appearance General Appearance: POSITIVE: Alert, Cooperative, No Acute Distress, No Evidence of Trauma - HEENT HEENT: POSITIVE: Head Inspection Nml, Eyes Inspection Nml, Ears Inspection Nml, Nose Inspection Nml, Oral/Dental Inspect. Nml, Pharynx Inspect. Nml, PERRL, EOMI - Neck Neck: POSITIVE: Normal Inspection, No Apparent Injury - Respiratory Respiratory: POSITIVE: No Respiratory Distress, Breath Sounds Normal, Chest Non- Tender - Cardiovascular Cardiovascular: POSITIVE: Regular Rate and Rhythm, Heart Sounds Normal, Equal Pulses, Strong Pulses Peripheral Pulses: Radial (R): 2+, Radial (L): 2+ - Chest Chest: POSITIVE: Non Tender - Abdomen Abdomen: Soft: (All Quadrants), Normal Bowel Sounds: (All Quadrants), No Splenomegaly: (All Quadrants), No Hepatomegaly: (All Quadrants), No Guarding: ( All Quadrants), No Rebound: (All Quadrants), No Palpable Pulse: (All Quadrants) , No Palpabale Mass: (All Quadrants), No Distention: (All Quadrants), No Rigidity: (All Quadrants) Additional Abdominal Details: Abdominal examination shows bowel sounds reactive. Patient, at the time I examined her, states she feels much better than she did when she came to the emergency room. She still has some tenderness on palpation in the umbilical area and just left of the umbilicus, but no definite herniation. - Back Back: POSITIVE: Normal Inspection - Skin Skin: POSITIVE: Intact, Normal For Race, Warm, Dry, No Rash - Extremities Extremity: Non-Tender: (All Extremities), Normal ROM: (All Extremities), Normal Inspection: (All Extremities) - Neurological Neurological: POSITIVE: Oriented X3, slack line yarder Normal As Tested, Motor Normal, Sensation Normal, 5, 6 - Psychological Psychiatric: POSITIVE: Affect Appropriate, Mood Appropriate Images - Complete Complete: 1 - Area of abdominal discomfort 2 - Area described chest pain Abdomen Progress - Results Reviewed by me Xrays/CTs/US Reviewed by me: Yes Discussed with Radiologist: Yes Radiology Findings: Chest x-ray normal. CTA chest ordered by Dr. Jorge normal. CT abdomen and pelvis with IV contrast shows a normal appendix. There is described a "new larger ventral hernia with protrusion of ventral fact and multiple loops of small bowel "in the umbilical area. Lab Results Reviewed: Yes Lab Results:: Laboratory Results 04/16/17 04/16/17 04/16/17 Range/Units 07:05 07:30 07:32 WBC 7.85 (4.8-10.8) 10^3/uL RBC 4.43 (4.20-5.40) 10^6/uL Hgb 13.8 (12.0-16.0) g/dL Hct 40.1 (37.0-47.0) % MCV 90.5 (81-99) FL MCH 31.2 H (27-31) PG MCHC 34.4 (33-37) g/dL RDW Std Deviation 41.7 (39-50) fL RDW Coeff of Saul 12.8 (11.5-14.5) % Plt Count 217 (140-350) 10*3/uL MPV 10.8 (7.4-12.2) FL Immature Gran % (Auto) 0.5 (0-5) % Neut % (Auto) 74.5 (50-80) % Lymph % (Auto) 11.6 (10-50) % [place] % (Auto) 11.0 (5-15) % Eos % (Auto) 1.9 (0-8) % Baso % (Auto) 0.5 (0-1) % Immature Gran # (Auto) 0.04 10*3/UL Neut # (Auto) 5.85 10*3/UL Lymph # (Auto) 0.91 10*3/uL [place] # (Auto) 0.86 H (0.3-0.8) 10*3/UL Eos # (Auto) 0.15 10*3/UL Baso # (Auto) 0.04 10*3/UL WBC Morphology Comment Normal morphology (NORM) Plt Morphology Comment Normal morphology (NORM) RBC Morph Comment Normal morphology (NORM) D-Dimer 0.45 (0.00-0.59) mg/L VBG pH 7.45 H (7.32-7.42) VBG pCO2 33 L (45-55) mmHg VBG HCO3 23 (22-26) mmol/L VBG Base Excess -2 (-2-2) MMOL/L Sodium 138 (135-145) meq/L Potassium 4.3 (3.8-5.2) meq/L Chloride 104 (98-112) meq/L Carbon Dioxide 23 (23-33) meq/L Anion Gap 11 (5-20) BUN 13 (7-22) mg/dL Creatinine 0.8 (0.50-1.20) mg/dL Estimated GFR > 60 (>60 ml/min/1.73m(2)) BUN/Creatinine Ratio 16.25 (6-20) Glucose 121 H (78-110) mg/dL Calculated Osmolality 286.0 (267-292) mOsm/kg Lactic Acid 1.4 (0.70-2.10) MMOL/L Calcium 10.8 H (8.7-10.7) mg/dL Magnesium 2.0 (1.6-2.4) mg/dL Total Bilirubin 1.5 H (0.3-1.2) mg/dL AST 29 (8-39) IU/L ALT 49 (9-52) IU/L Alkaline Phosphatase 68 (38-126) IU/L Troponin I (< 0.040) ng/mL C-Reactive Protein 1.4 H (0.0-0.9) mg/dL Total Protein 7.6 (6.1-8.0) g/dL Albumin 4.5 (3.5-4.8) g/dL Globulin 3.1 (2.50-4.10) g/dL Albumin/Globulin Ratio 1.40 (1.3-2.0) mg/g Triglycerides (44-200) mg/dL Cholesterol (120-200) mg/dL LDL Cholesterol, Calc mg/dL VLDL Cholesterol (0-40) mg/dL HDL Cholesterol (40-150) mg/dL Cholesterol/HDL Ratio (0-4.0) RATIO Lipase 58 (23-300) IU/L Ur Collection Type Clean catch urine Urine Color Yellow Urine Clarity Clear (CLEAR) Urine pH 7.5 (5.0-8.5) Ur Specific [place] 1.020 (1.005-1.030) Urine Protein Negative (NEG) mg/dl Urine Glucose (UA) Negative (NEG) mg/dL Urine Ketones Negative (NEG) Urine Occult Blood Negative (NEG) Urine Nitrate Negative (NEG) Urine Bilirubin Negative (NEG) Urine Urobilinogen 1.0 (0.2) EU/dL Ur Leukocyte Esterase Negative (NEG) Ur Culture Indicated? Culture not set 04/16/17 Range/Units 08:20 WBC (4.8-10.8) 10^3/uL RBC (4.20-5.40) 10^6/uL Hgb (12.0-16.0) g/dL Hct (37.0-47.0) % MCV (81-99) FL MCH (27-31) PG MCHC (33-37) g/dL RDW Std Deviation (39-50) fL RDW Coeff of Saul (11.5-14.5) % Plt Count (140-350) 10*3/uL MPV (7.4-12.2) FL Immature Gran % (Auto) (0-5) % Neut % (Auto) (50-80) % Lymph % (Auto) (10-50) % [place] % (Auto) (5-15) % Eos % (Auto) (0-8) % Baso % (Auto) (0-1) % Immature Gran # (Auto) 10*3/UL Neut # (Auto) 10*3/UL Lymph # (Auto) 10*3/uL [place] # (Auto) (0.3-0.8) 10*3/UL Eos # (Auto) 10*3/UL Baso # (Auto) 10*3/UL WBC Morphology Comment (NORM) Plt Morphology Comment (NORM) RBC Morph Comment (NORM) D-Dimer (0.00-0.59) mg/L VBG pH (7.32-7.42) VBG pCO2 (45-55) mmHg VBG HCO3 (22-26) mmol/L VBG Base Excess (-2-2) MMOL/L Sodium (135-145) meq/L Potassium (3.8-5.2) meq/L Chloride (98-112) meq/L Carbon Dioxide (23-33) meq/L Anion Gap (5-20) BUN (7-22) mg/dL Creatinine (0.50-1.20) mg/dL Estimated GFR (>60 ml/min/1.73m(2)) BUN/Creatinine Ratio (6-20) Glucose (78-110) mg/dL Calculated Osmolality (267-292) mOsm/kg Lactic Acid (0.70-2.10) MMOL/L Calcium (8.7-10.7) mg/dL Magnesium (1.6-2.4) mg/dL Total Bilirubin (0.3-1.2) mg/dL AST (8-39) IU/L ALT (9-52) IU/L Alkaline Phosphatase (38-126) IU/L Troponin I < 0.012 (< 0.040) ng/mL C-Reactive Protein (0.0-0.9) mg/dL Total Protein (6.1-8.0) g/dL Albumin (3.5-4.8) g/dL Globulin (2.50-4.10) g/dL Albumin/Globulin Ratio (1.3-2.0) mg/g Triglycerides 121 (44-200) mg/dL Cholesterol 160 (120-200) mg/dL LDL Cholesterol, Calc 101.800 mg/dL VLDL Cholesterol 24 (0-40) mg/dL HDL Cholesterol 34 L (40-150) mg/dL Cholesterol/HDL Ratio 4.70 H (0-4.0) RATIO Lipase (23-300) IU/L Ur Collection Type Urine Color Urine Clarity (CLEAR) Urine pH (5.0-8.5) Ur Specific [place] (1.005-1.030) Urine Protein (NEG) mg/dl Urine Glucose (UA) (NEG) mg/dL Urine Ketones (NEG) Urine Occult Blood (NEG) Urine Nitrate (NEG) Urine Bilirubin (NEG) Urine Urobilinogen (0.2) EU/dL Ur Leukocyte Esterase (NEG) Ur Culture Indicated? EKG Interpreted/Reviewed By Me:: Yes (normal) EKG Interpretation:: POSITIVE: Normal Sinus Rhythm, Normal Rate, Normal Intervals, Normal [place], Normal QRS, Normal ST/T - Patient's Progress Pain Medication Addressed: POSITIVE: Yes School/Work Release Addressed: POSITIVE: Not Applicable Re-examine Time: 10:05 Re-Examine Comment: Patient feels better than she did on arrival. Dr. Jorge and already made arrangements with Dr. Paris, hospitalist, for admission for further evaluation and treatment. Patient admitted to Dr. Paris. Status: POSITIVE: Improved, Re-Examined - Consult Consult (If Yes, Name of Consulting MD & Time Called): Yes (Raina) Consulting MD will see pt:: POSITIVE: [facility] Admit Counseled: POSITIVE: Patient, RE: Lab Results, RE: Radiology Results, RE: DX, RE : Need for F/U Patient Care Time - Estimated PCT Patient Care Time (In Minutes): 40 Vital Signs - Recent Vital Signs Vital Signs: Vital Signs (Last 8 hours) Temp Pulse Pulse Resp BP Pulse Ox 04/16/17 17:00 99.4 F 96 22 137/99 92 04/16/17 15:00 93 04/16/17 13:00 98.0 F 87 20 125/69 94 - VS Reviewed Vital Signs Reviewed: Yes Discharge Clinical Impression: Abdominal pain, Chest pain Discharge Disposition: Admit to Inpatient Condition: Fair Date Decision to Admit to Inpatient: 04/16/17 Time Decision to Admit to Inpatient: 10:00
[2017-04-16] MEDS: CITALOPRAM 20 MG TABLET PO SCH (23:57)
[2017-04-16] MEDS: LISINOPRIL 10 MG TABLET PO SCH (23:57)
[2017-04-16] MEDS: Montelukast Tab 10 MG TAB PO SCH (23:57)
[2017-04-17] MEDS: Sodium Chloride 0.9% 1,000 ML PRIMARY IV SCH (03:00)
[2017-04-17 06:42] LABS: BASOPHILS # (AUTO) 0.06 10*3/UL; EOSINOPHILS # (AUTO) 0.09 10*3/UL; EOSINOPHILS % (AUTO) 1.6 % (0-8); HEMATOCRIT 39.4 % (37.0-47.0); HEMOGLOBIN 13.3 g/dL (12.0-16.0); LYMPHOCYTES # (AUTO) 1.07 10*3/uL; MEAN CORPUSCULAR HEMOGLOBIN 31.2 PG (27-31); MEAN CORPUSCULAR HGB CONC 33.8 g/dL (33-37); MEAN CORPUSCULAR VOLUME 92.5 FL (81-99); MEAN PLATELET VOLUME 10.9 FL (7.4-12.2); MONOCYTES % (AUTO) 13.8 % (5-15); NEUTROPHILS # (AUTO) 3.72 10*3/UL; NEUTROPHILS % (AUTO) 64.2 % (50-80); RED BLOOD COUNT 4.26 10^6/uL (4.20-5.40)
[2017-04-17 06:45] LABS: PLATELET MORPHOLOGY COMMENT NORMAL MORPHOLOGY (NORM); RBC MORPHOLOGY COMMENT NORMAL MORPHOLOGY (NORM); WBC MORPHOLOGY COMMENT NORMAL MORPHOLOGY (NORM)
[2017-04-17 06:48] LABS: BLOOD UREA NITROGEN 8 mg/dL (7-22); BUN/CREATININE RATIO 11.42 (6-20)
[2017-04-17 06:49] LABS: EST GLOMERULAR FILTRATION > 60 (>60 ml/min/1.73m(2))
--- NOTE | 2017-04-17 07:25 | DI ---
HISTORY: Nausea and vomiting. COMPARISON: None available. FINDINGS: Examination demonstrates a nonspecific bowel gas pattern without evidence for obstruction. IMPRESSION: 1. Nonspecific bowel gas pattern without evidence for obstruction.
[2017-04-17] MEDS ORDERED: Montelukast Tab 10 MG TAB PO SCH ×2 (09:00→21:00)
[2017-04-17] MEDS ORDERED: LISINOPRIL 10 MG TABLET PO SCH ×2 (09:00→21:00)
[2017-04-17] MEDS ORDERED: CITALOPRAM 20 MG TABLET PO SCH ×2 (09:00→21:00)
--- NOTE | 2017-04-17 12:36 | PDOC(PROG) ---
Date and Time of Service: 04/17/2017, 1225 Interval History: The patient had vomiting overnight. No complaints of chest pain or shortness of breath. No nausea or vomiting this morning. She feels like she is passing gas and feels like she may have a bowel movement today. She reports no pain with her hernia, and states she is not even aware it is there until she coughs. Objective : Data - Labs CBC and BMP: 04/17/17 06:27 04/17/17 06:27 Labs - Last 24 Hours: Laboratory Results 04/16/17 04/16/17 04/16/17 Range/Units 14:14 16:22 20:10 WBC (4.8-10.8) 10^3/uL RBC (4.20-5.40) 10^6/uL Hgb (12.0-16.0) g/dL Hct (37.0-47.0) % MCV (81-99) FL MCH (27-31) PG MCHC (33-37) g/dL RDW Std Deviation (39-50) fL RDW Coeff of Saul (11.5-14.5) % Plt Count (140-350) 10*3/uL MPV (7.4-12.2) FL Immature Gran % (Auto) (0-5) % Neut % (Auto) (50-80) % Lymph % (Auto) (10-50) % [place] % (Auto) (5-15) % Eos % (Auto) (0-8) % Baso % (Auto) (0-1) % Immature Gran # (Auto) 10*3/UL Neut # (Auto) 10*3/UL Lymph # (Auto) 10*3/uL [place] # (Auto) (0.3-0.8) 10*3/UL Eos # (Auto) 10*3/UL Baso # (Auto) 10*3/UL WBC Morphology Comment (NORM) Plt Morphology Comment (NORM) RBC Morph Comment (NORM) PT 10.7 (9.7-11.4) secs INR 1.04 (0.00-5.90) N/A Sodium (135-145) meq/L Potassium (3.8-5.2) meq/L Chloride (98-112) meq/L Carbon Dioxide (23-33) meq/L Anion Gap (5-20) BUN (7-22) mg/dL Creatinine (0.50-1.20) mg/dL Estimated GFR (>60 ml/min/1.73m(2)) BUN/Creatinine Ratio (6-20) Glucose (78-110) mg/dL Mean Blood Glucose 86.161 mg/dL Hemoglobin A1c 5.17 (4.2-6.0) % Calculated Osmolality (267-292) mOsm/kg Lactic Acid 1.4 (0.70-2.10) MMOL/L Calcium (8.7-10.7) mg/dL Troponin I < 0.012 < 0.012 (< 0.040) ng/mL 04/17/17 Range/Units 06:27 WBC 5.79 (4.8-10.8) 10^3/uL RBC 4.26 (4.20-5.40) 10^6/uL Hgb 13.3 (12.0-16.0) g/dL Hct 39.4 (37.0-47.0) % MCV 92.5 (81-99) FL MCH 31.2 H (27-31) PG MCHC 33.8 (33-37) g/dL RDW Std Deviation 42.9 (39-50) fL RDW Coeff of Saul 13.0 (11.5-14.5) % Plt Count 191 (140-350) 10*3/uL MPV 10.9 (7.4-12.2) FL Immature Gran % (Auto) 0.9 (0-5) % Neut % (Auto) 64.2 (50-80) % Lymph % (Auto) 18.5 (10-50) % [place] % (Auto) 13.8 (5-15) % Eos % (Auto) 1.6 (0-8) % Baso % (Auto) 1.0 (0-1) % Immature Gran # (Auto) 0.05 10*3/UL Neut # (Auto) 3.72 10*3/UL Lymph # (Auto) 1.07 10*3/uL [place] # (Auto) 0.80 (0.3-0.8) 10*3/UL Eos # (Auto) 0.09 10*3/UL Baso # (Auto) 0.06 10*3/UL WBC Morphology Comment Normal morphology (NORM) Plt Morphology Comment Normal morphology (NORM) RBC Morph Comment Normal morphology (NORM) PT (9.7-11.4) secs INR (0.00-5.90) N/A Sodium 139 (135-145) meq/L Potassium 4.1 (3.8-5.2) meq/L Chloride 106 (98-112) meq/L Carbon Dioxide 24 (23-33) meq/L Anion Gap 9 (5-20) BUN 8 (7-22) mg/dL Creatinine 0.7 (0.50-1.20) mg/dL Estimated GFR > 60 (>60 ml/min/1.73m(2)) BUN/Creatinine Ratio 11.42 (6-20) Glucose 107 (78-110) mg/dL Mean Blood Glucose mg/dL Hemoglobin A1c (4.2-6.0) % Calculated Osmolality 285.0 (267-292) mOsm/kg Lactic Acid (0.70-2.10) MMOL/L Calcium 10.0 (8.7-10.7) mg/dL Troponin I (< 0.040) ng/mL - Imaging X-Ray Status: Image Reviewed by Me (Acute abdominal series appears normal.) Objective : Exam - General General Appearance: No Acute Distress, Cooperative Additional General Exam Details: Vital Signs - Last Taken Temperature 96.8 F 04/17/17 08:09 Pulse Rate 77 04/17/17 08:09 Respiratory Rate 18 04/17/17 08:09 Blood Pressure 137/83 04/17/17 08:09 Pulse Ox 93 04/17/17 08:09 - Respiratory Respiratory Exam: Clear to Auscultation - Bilaterally, Breathing Non Labored - Cardiovascular Cardiovascular Exam: RRR, No Murmur, No Clicks, No Gallops, No Rubs - GI/Abdominal GI/Abdominal Exam: Normal Bowel Sounds, Non Tender, Non Distended, Soft, Hernia (no tenderness with palpation) - Extremities Extremities Exam: No Clubbing Present, No Edema Present, No Cyanosis Present - Neurological Neurological Exam: Alert, Oriented x 3, No Facial Droop, Speech Intact / Clear, Moves All Extremities Equally - Psychiatric Psychiatric Exam: Normal Affect, Normal Mood Assessment and Plan - Patient Problems (1) Paraumbilical hernia Current Visit: Yes Status: Acute (2) Nausea and vomiting Current Visit: Yes Status: Acute Qualifiers: Vomiting type: unspecified Vomiting Intractability: non-intractable Qualified Description: Non-intractable vomiting with nausea, unspecified vomiting type Qualifier Code(s): (R11.2) Nausea with vomiting, unspecified (3) Morbid obesity Current Visit: Yes Status: Acute Qualifiers: Obesity type: due to excess calories Qualified Description: Morbid obesity due to excess calories Qualifier Code(s): (E66.01) Morbid (severe ) obesity due to excess calories (4) Migraine headache Current Visit: Yes Status: Chronic Qualifiers: Migraine type: unspecified Status migrainosus presence: without status migrainosus Intractability: not intractable Qualified Description: Migraine without status migrainosus, not intractable, unspecified migraine type Qualifier Code(s): (G43.909) Migraine, unspecified, not intractable, without status migrainosus (5) Arthritis Current Visit: Yes Status: Acute (6) Hyperparathyroidism Current Visit: Yes Status: Acute - Assessment / Plan Additional Assessment/Plan Details: continue IV fluids, antiemetics, and liquid diet There is no evidence to support bowel obstruction, and I still think it may be best to try to work towards an outpatient workup and evaluation to determine if the patient would be best served by specialty referral in [place] or to have hernia repair here. I'll update Dr. Sousa, let him know my thoughts, and keep the patient overnight. Will admit as inpatient and check labs tomorrow.
--- NOTE | 2017-04-17 14:33 | PDOC(PROG) ---
Date and Time of Service: 04/17/2017 2:20 PM Interval History: Patient was started on clear liquids yesterday afternoon. Apparently she drank a large volume of clear liquids and threw up about 700 mL. She thinks she got up too quickly. She was having a headache. She was not really having abdominal pain. After she vomited her symptoms all resolved. As a precaution she was made nothing by mouth. An x-ray was done this morning which shows no evidence of a bowel obstruction. Lab work was unremarkable. This morning she has passed gas and had a bowel movement. She was restarted on clear liquids and is tolerating them. She reports she is really not having any significant abdominal pain. Objective : Data - Labs CBC and BMP: 04/17/17 06:27 04/17/17 06:27 - Vital Signs Vital Signs and I&O: Vital Signs - Last Taken Temperature 96.8 F 04/17/17 13:00 Pulse Rate 76 04/17/17 13:00 Respiratory Rate 16 04/17/17 13:00 Blood Pressure 115/65 04/17/17 13:00 Pulse Ox 93 04/17/17 13:00 Objective : Exam - General General Appearance: No Acute Distress, Cooperative - Respiratory Respiratory Exam: Clear to Auscultation - Bilaterally, Breathing Non Labored - Cardiovascular Cardiovascular Exam: RRR, No Murmur - GI/Abdominal GI/Abdominal Exam: Normal Bowel Sounds, Soft, Hernia (Minimal tenderness.) - Neurological Neurological Exam: Alert, Oriented x 3 - Psychiatric Psychiatric Exam: Normal Affect, Normal Mood Assessment and Plan - Patient Problems (1) Recurrent incisional hernia Current Visit: Yes Status: Chronic Priority: Medium Comment: Chronic. No evidence of bowel obstruction. Start clear liquids and advance as tolerated. Discharge tomorrow if tolerating her diet. Patient will see me in the office next week to discuss repair of her recurrent and incarcerated, but not strangulated, incisional hernia. Discussed in detail with the patient and Dr. Grossman.
[2017-04-17] MEDS: LISINOPRIL 10 MG TABLET PO SCH (20:25)
[2017-04-17] MEDS: Montelukast Tab 10 MG TAB PO SCH (20:26)
[2017-04-17] MEDS: CITALOPRAM 20 MG TABLET PO SCH (20:26)
[2017-04-18] MEDS: Sodium Chloride 0.9% 1,000 ML PRIMARY IV SCH ×3 (00:24→07:45)
[2017-04-18 05:03] LABS: BASOPHILS # (AUTO) 0.08 10*3/UL; BASOPHILS % (AUTO) 1.5 % (0-1); EOSINOPHILS # (AUTO) 0.17 10*3/UL; EOSINOPHILS % (AUTO) 3.2 % (0-8); HEMATOCRIT 40.7 % (37.0-47.0); HEMOGLOBIN 13.7 g/dL (12.0-16.0); LYMPHOCYTES # (AUTO) 1.61 10*3/uL; MEAN CORPUSCULAR HGB CONC 33.7 g/dL (33-37); MEAN CORPUSCULAR VOLUME 92.1 FL (81-99); MEAN PLATELET VOLUME 10.8 FL (7.4-12.2); MONOCYTES # (AUTO) 0.72 10*3/UL (0.3-0.8); MONOCYTES % (AUTO) 13.4 % (5-15); NEUTROPHILS # (AUTO) 2.75 10*3/UL; NEUTROPHILS % (AUTO) 51.3 % (50-80); RED BLOOD COUNT 4.42 10^6/uL (4.20-5.40)
[2017-04-18 05:26] LABS: PLATELET MORPHOLOGY COMMENT NORMAL MORPHOLOGY (NORM); RBC MORPHOLOGY COMMENT NORMAL MORPHOLOGY (NORM); WBC MORPHOLOGY COMMENT NORMAL MORPHOLOGY (NORM)
[2017-04-18 05:31] LABS: BLOOD UREA NITROGEN 9 mg/dL (7-22); BUN/CREATININE RATIO 11.25 (6-20); EST GLOMERULAR FILTRATION > 60 (>60 ml/min/1.73m(2))
[2017-04-18 09:27] VITALS: RESP 20; TEMP 97.8
--- NOTE | 2017-04-18 12:31 | DCSUMMARY ---
Hospitalization Summary Admit Date: 04/16/17 Discharge Date: 04/18/17 Primary Diagnosis:: umbilical hernia with nausea and vomiting Hospital Course: This very pleasant 41-year-old female who came in with nausea and vomiting, that was presumed related to an umbilical hernia. There is no evidence of obstruction, but it does appear to be incarcerated with no strength in relation. Surgery was consult to. Overall was felt that it might be best for the patient to eventually proceed with surgery in [place] with specialists to do more complex hernia repair. This apparently is a recurrent hernia. Over the course of hospital stay, the patient's nausea and vomiting improved, and her pain resolved. She was passing gas and having bowel movements. We spent a lot of time talking about diet and exercise for obesity. Patient is also thinking about surgical options, and I suggested that she speak with Dr. Lewis in [place] to review potential surgical therapies for obesity. Overall I would prefer that she does with diet changes first and exercise changes as well. Patient did have some sinus congestion, headaches, and she has problems with seasonal allergies. Is not clear if this is bacterial as it seems to be getting worse. I've given her prescription for 5 days of doxycycline if her sinus symptoms persisted for more days as the length of this symptomatology will be increasing and maybe antibacterial range at that point. I also suggested that patient take Flonase nasal spray to help combat allergies. Today, no completes of chest pain, shortness breath, nausea or vomiting, or abdominal pain, she is walking and ambulating well, and having good bowel movements. Assessment and Plan: 1. As per discharge assessments noted 2. Disposition: Patient is discharged home. 3. Condition on discharge, stable and improved. 4. Diet: regular diet 5. Activities: resume normal activities 6. Follow-Up: 1. Dr. Sousa on April [address] John in a week and get parathyroid SPECT scan in 6 weeks to review the results with Dr. John at that time. 7. Medications at the Time of Discharge: Home Medications Medication Instructions Recorded Confirmed Type Sumatriptan Succinate [Imitrex] 25 mg PO QD #20 tab 06/20/16 04/16/17 Clinic Citalopram Hydrobromide 1 tab PO DAILY #90 tab 11/05/16 04/16/17 Clinic [Citalopram HBr] Lisinopril 1 tab PO DAILY #90 tab 11/05/16 04/16/17 Clinic Montelukast Sodium [Singulair] 1 tab PO DAILY #90 tab 11/05/16 04/16/17 Clinic Doxycycline Hyclate 100 mg PO BID #10 cap 04/18/17 Rx Fluticasone Propionate [Flonase 9.9 ml NS DAILY #1 spray.susp 04/18/17 Rx Allergy Relief] 8. Time, care, counseling and coordination of care for this discharge is greater than 30 minutes. Exam - Vitals Vital Signs: Vital Signs Temperature 97.8 F Temperature Source Temporal Artery Scan Pulse Rate [Apical] 80 Pulse Rate [Pulse Oximeter] 87 Respiratory Rate 20 Blood Pressure [Left Radial 138/92 Artery] Pulse Ox 95 Oxygen Flow Rate 2 Oxygen Delivery Method Room Air Height 4 ft 9 in - General General Appearance: POSITIVE: No Acute Distress, Cooperative - Head Head Exam: POSITIVE: Normal Inspection, Normocephalic, Atraumatic - Eye Eye Exam: POSITIVE: No Scleral Icterus - ENT Additonal ENT Exam Details: Tenderness on palpation of the maxillary sinuses. - Respiratory Respiratory Exam: POSITIVE: Clear to Auscultation - Bilaterally, Breathing Non Labored - Cardiovascular Cardiovascular Exam: POSITIVE: RRR, No Murmur, No Clicks, No Gallops, No Rubs, No JVD - GI/Abdominal GI/Abdominal Exam: POSITIVE: Normal Bowel Sounds, Non Tender, Non Distended, Soft - Extremities Extremities Exam: POSITIVE: No Clubbing Present, No Edema Present, No Cyanosis Present - Neurological Neurological Exam: POSITIVE: Alert, Oriented x 3, No Facial Droop, Speech Intact / Clear, Moves All Extremities Equally Data Perinent Studies: Laboratory Results 04/16/17 04/16/17 04/16/17 Range/Units 07:05 07:30 07:32 WBC 7.85 (4.8-10.8) 10^3/uL RBC 4.43 (4.20-5.40) 10^6/uL Hgb 13.8 (12.0-16.0) g/dL Hct 40.1 (37.0-47.0) % MCV 90.5 (81-99) FL MCH 31.2 H (27-31) PG MCHC 34.4 (33-37) g/dL RDW Std Deviation 41.7 (39-50) fL RDW Coeff of Saul 12.8 (11.5-14.5) % Plt Count 217 (140-350) 10*3/uL MPV 10.8 (7.4-12.2) FL Immature Gran % (Auto) 0.5 (0-5) % Neut % (Auto) 74.5 (50-80) % Lymph % (Auto) 11.6 (10-50) % Gem % (Auto) 11.0 (5-15) % Eos % (Auto) 1.9 (0-8) % Baso % (Auto) 0.5 (0-1) % Immature Gran # (Auto) 0.04 10*3/UL Neut # (Auto) 5.85 10*3/UL Lymph # (Auto) 0.91 10*3/uL Gem # (Auto) 0.86 H (0.3-0.8) 10*3/UL Eos # (Auto) 0.15 10*3/UL Baso # (Auto) 0.04 10*3/UL WBC Morphology Comment Normal morphology (NORM) Plt Morphology Comment Normal morphology (NORM) RBC Morph Comment Normal morphology (NORM) PT (9.7-11.4) secs INR (0.00-5.90) N/A D-Dimer 0.45 (0.00-0.59) mg/L VBG pH 7.45 H (7.32-7.42) VBG pCO2 33 L (45-55) mmHg VBG HCO3 23 (22-26) mmol/L VBG Base Excess -2 (-2-2) MMOL/L Sodium 138 (135-145) meq/L Potassium 4.3 (3.8-5.2) meq/L Chloride 104 (98-112) meq/L Carbon Dioxide 23 (23-33) meq/L Anion Gap 11 (5-20) BUN 13 (7-22) mg/dL Creatinine 0.8 (0.50-1.20) mg/dL Estimated GFR > 60 (>60 ml/min/1.73m(2)) BUN/Creatinine Ratio 16.25 (6-20) Glucose 121 H (78-110) mg/dL Mean Blood Glucose mg/dL Hemoglobin A1c (4.2-6.0) % Calculated Osmolality 286.0 (267-292) mOsm/kg Lactic Acid 1.4 (0.70-2.10) MMOL/L Calcium 10.8 H (8.7-10.7) mg/dL Magnesium 2.0 (1.6-2.4) mg/dL Total Bilirubin 1.5 H (0.3-1.2) mg/dL AST 29 (8-39) IU/L ALT 49 (9-52) IU/L Alkaline Phosphatase 68 (38-126) IU/L Troponin I (< 0.040) ng/mL C-Reactive Protein 1.4 H (0.0-0.9) mg/dL Total Protein 7.6 (6.1-8.0) g/dL Albumin 4.5 (3.5-4.8) g/dL Globulin 3.1 (2.50-4.10) g/dL Albumin/Globulin Ratio 1.40 (1.3-2.0) mg/g Triglycerides (44-200) mg/dL Cholesterol (120-200) mg/dL LDL Cholesterol, Calc mg/dL VLDL Cholesterol (0-40) mg/dL HDL Cholesterol (40-150) mg/dL Cholesterol/HDL Ratio (0-4.0) RATIO Lipase 58 (23-300) IU/L Ur Collection Type Clean catch urine Urine Color Yellow Urine Clarity Clear (CLEAR) Urine pH 7.5 (5.0-8.5) Ur Specific [place] 1.020 (1.005-1.030) Urine Protein Negative (NEG) mg/dl Urine Glucose (UA) Negative (NEG) mg/dL Urine Ketones Negative (NEG) Urine Occult Blood Negative (NEG) Urine Nitrate Negative (NEG) Urine Bilirubin Negative (NEG) Urine Urobilinogen 1.0 (0.2) EU/dL Ur Leukocyte Esterase Negative (NEG) Ur Culture Indicated? Culture not set 04/16/17 04/16/17 04/16/17 Range/Units 08:20 14:14 16:22 WBC (4.8-10.8) 10^3/uL RBC (4.20-5.40) 10^6/uL Hgb (12.0-16.0) g/dL Hct (37.0-47.0) % MCV (81-99) FL MCH (27-31) PG MCHC (33-37) g/dL RDW Std Deviation (39-50) fL RDW Coeff of Saul (11.5-14.5) % Plt Count (140-350) 10*3/uL MPV (7.4-12.2) FL Immature Gran % (Auto) (0-5) % Neut % (Auto) (50-80) % Lymph % (Auto) (10-50) % Gem % (Auto) (5-15) % Eos % (Auto) (0-8) % Baso % (Auto) (0-1) % Immature Gran # (Auto) 10*3/UL Neut # (Auto) 10*3/UL Lymph # (Auto) 10*3/uL Gem # (Auto) (0.3-0.8) 10*3/UL Eos # (Auto) 10*3/UL Baso # (Auto) 10*3/UL WBC Morphology Comment (NORM) Plt Morphology Comment (NORM) RBC Morph Comment (NORM) PT 10.7 (9.7-11.4) secs INR 1.04 (0.00-5.90) N/A D-Dimer (0.00-0.59) mg/L VBG pH (7.32-7.42) VBG pCO2 (45-55) mmHg VBG HCO3 (22-26) mmol/L VBG Base Excess (-2-2) MMOL/L Sodium (135-145) meq/L Potassium (3.8-5.2) meq/L Chloride (98-112) meq/L Carbon Dioxide (23-33) meq/L Anion Gap (5-20) BUN (7-22) mg/dL Creatinine (0.50-1.20) mg/dL Estimated GFR (>60 ml/min/1.73m(2)) BUN/Creatinine Ratio (6-20) Glucose (78-110) mg/dL Mean Blood Glucose 86.161 mg/dL Hemoglobin A1c 5.17 (4.2-6.0) % Calculated Osmolality (267-292) mOsm/kg Lactic Acid 1.4 (0.70-2.10) MMOL/L Calcium (8.7-10.7) mg/dL Magnesium (1.6-2.4) mg/dL Total Bilirubin (0.3-1.2) mg/dL AST (8-39) IU/L ALT (9-52) IU/L Alkaline Phosphatase (38-126) IU/L Troponin I < 0.012 < 0.012 (< 0.040) ng/mL C-Reactive Protein (0.0-0.9) mg/dL Total Protein (6.1-8.0) g/dL Albumin (3.5-4.8) g/dL Globulin (2.50-4.10) g/dL Albumin/Globulin Ratio (1.3-2.0) mg/g Triglycerides 121 (44-200) mg/dL Cholesterol 160 (120-200) mg/dL LDL Cholesterol, Calc 101.800 mg/dL VLDL Cholesterol 24 (0-40) mg/dL HDL Cholesterol 34 L (40-150) mg/dL Cholesterol/HDL Ratio 4.70 H (0-4.0) RATIO Lipase (23-300) IU/L Ur Collection Type Urine Color Urine Clarity (CLEAR) Urine pH (5.0-8.5) Ur Specific [place] (1.005-1.030) Urine Protein (NEG) mg/dl Urine Glucose (UA) (NEG) mg/dL Urine Ketones (NEG) Urine Occult Blood (NEG) Urine Nitrate (NEG) Urine Bilirubin (NEG) Urine Urobilinogen (0.2) EU/dL Ur Leukocyte Esterase (NEG) Ur Culture Indicated? 04/16/17 04/17/17 04/18/17 Range/Units 20:10 06:27 04:32 WBC 5.79 5.36 (4.8-10.8) 10^3/uL RBC 4.26 4.42 (4.20-5.40) 10^6/uL Hgb 13.3 13.7 (12.0-16.0) g/dL Hct 39.4 40.7 (37.0-47.0) % MCV 92.5 92.1 (81-99) FL MCH 31.2 H 31.0 (27-31) PG MCHC 33.8 33.7 (33-37) g/dL RDW Std Deviation 42.9 43.1 (39-50) fL RDW Coeff of Saul 13.0 13.1 (11.5-14.5) % Plt Count 191 203 (140-350) 10*3/uL MPV 10.9 10.8 (7.4-12.2) FL Immature Gran % (Auto) 0.9 0.6 (0-5) % Neut % (Auto) 64.2 51.3 (50-80) % Lymph % (Auto) 18.5 30.0 (10-50) % Gem % (Auto) 13.8 13.4 (5-15) % Eos % (Auto) 1.6 3.2 (0-8) % Baso % (Auto) 1.0 1.5 H (0-1) % Immature Gran # (Auto) 0.05 0.03 10*3/UL Neut # (Auto) 3.72 2.75 10*3/UL Lymph # (Auto) 1.07 1.61 10*3/uL Gem # (Auto) 0.80 0.72 (0.3-0.8) 10*3/UL Eos # (Auto) 0.09 0.17 10*3/UL Baso # (Auto) 0.06 0.08 10*3/UL WBC Morphology Comment Normal morphology Normal morphology (NORM) Plt Morphology Comment Normal morphology Normal morphology (NORM) RBC Morph Comment Normal morphology Normal morphology (NORM) PT (9.7-11.4) secs INR (0.00-5.90) N/A D-Dimer (0.00-0.59) mg/L VBG pH (7.32-7.42) VBG pCO2 (45-55) mmHg VBG HCO3 (22-26) mmol/L VBG Base Excess (-2-2) MMOL/L Sodium 139 139 (135-145) meq/L Potassium 4.1 4.1 (3.8-5.2) meq/L Chloride 106 108 (98-112) meq/L Carbon Dioxide 24 23 (23-33) meq/L Anion Gap 9 8 (5-20) BUN 8 9 (7-22) mg/dL Creatinine 0.7 0.8 (0.50-1.20) mg/dL Estimated GFR > 60 > 60 (>60 ml/min/1.73m(2)) BUN/Creatinine Ratio 11.42 11.25 (6-20) Glucose 107 103 (78-110) mg/dL Mean Blood Glucose mg/dL Hemoglobin A1c (4.2-6.0) % Calculated Osmolality 285.0 286.0 (267-292) mOsm/kg Lactic Acid (0.70-2.10) MMOL/L Calcium 10.0 10.0 (8.7-10.7) mg/dL Magnesium (1.6-2.4) mg/dL Total Bilirubin 1.2 (0.3-1.2) mg/dL AST 33 (8-39) IU/L ALT 78 H D (9-52) IU/L Alkaline Phosphatase 69 (38-126) IU/L Troponin I < 0.012 (< 0.040) ng/mL C-Reactive Protein (0.0-0.9) mg/dL Total Protein 6.7 (6.1-8.0) g/dL Albumin 4.0 (3.5-4.8) g/dL Globulin 2.7 (2.50-4.10) g/dL Albumin/Globulin Ratio 1.40 (1.3-2.0) mg/g Triglycerides (44-200) mg/dL Cholesterol (120-200) mg/dL LDL Cholesterol, Calc mg/dL VLDL Cholesterol (0-40) mg/dL HDL Cholesterol (40-150) mg/dL Cholesterol/HDL Ratio (0-4.0) RATIO Lipase (23-300) IU/L Ur Collection Type Urine Color Urine Clarity (CLEAR) Urine pH (5.0-8.5) Ur Specific [place] (1.005-1.030) Urine Protein (NEG) mg/dl Urine Glucose (UA) (NEG) mg/dL Urine Ketones (NEG) Urine Occult Blood (NEG) Urine Nitrate (NEG) Urine Bilirubin (NEG) Urine Urobilinogen (0.2) EU/dL Ur Leukocyte Esterase (NEG) Ur Culture Indicated? Patient Problems - Patient Problem List (1) Paraumbilical hernia Current Visit: Yes Status: Acute (2) Nausea and vomiting Current Visit: Yes Status: Acute Qualifiers: Vomiting type: unspecified Vomiting Intractability: non-intractable Qualified Description: Non-intractable vomiting with nausea, unspecified vomiting type Qualifier Code(s): (R11.2) Nausea with vomiting, unspecified (3) Morbid obesity Current Visit: Yes Status: Acute Qualifiers: Obesity type: due to excess calories Qualified Description: Morbid obesity due to excess calories Qualifier Code(s): (E66.01) Morbid (severe ) obesity due to excess calories (4) Migraine headache Current Visit: Yes Status: Chronic Qualifiers: Migraine type: unspecified Status migrainosus presence: without status migrainosus Intractability: not intractable Qualified Description: Migraine without status migrainosus, not intractable, unspecified migraine type Qualifier Code(s): (G43.909) Migraine, unspecified, not intractable, without status migrainosus (5) Arthritis Current Visit: Yes Status: Acute (6) Hyperparathyroidism Current Visit: Yes Status: Acute
== END 2017-04-18 13:25 | disposition home or self-care (01) | DRG 395 ==
LOC: ER 06:40 → MED/SURG 09:46 → OBSVTOIN 04-17 12:43
PROVIDERS: ADMIT Family Medicine; ATTEND Family Medicine
DX: K42.9 Umbilical hernia without obstruction or gangrene (principal); R11.2 Nausea with vomiting, unspecified; E66.01 Morbid (severe) obesity due to excess calories; G43.909 Migraine, unspecified, not intractable, without status migrainosus; E21.3 Hyperparathyroidism, unspecified
CPT/HCPCS: 36415; 71010; 71275; 74020; 74177; 80048; 80053; 80061; 81003; 82803; 83036; 83605; 83690; 83735; 84484; 85025; 85379; 85610; 86140; 87040; 93005; 93010; 94761; 96361; 96374; 96375; 99284; J2270; J2405; J7030

== ENCOUNTER 2017-05-06 06:53 | Observation (INO) | payer BC ==
[2017-05-06] MEDS ORDERED: Lactated Ringers 1,000 ML PRIMARY IV ONE (07:00)
[2017-05-06] MEDS ORDERED: LIDOCAINE W/ SODIUM BICARB 0.5 ML SYR ONE ×2 (07:00→07:36)
[2017-05-06] MEDS ORDERED: NORMAL SALINE 10 ML SYRINGE FLUSH IVP PRN ×2 (07:15→12:43)
[2017-05-06] MEDS ORDERED: fentaNYL Inj 100 MCG/2 ML VIAL IVP PRN (07:15)
[2017-05-06] MEDS ORDERED: Lactated Ringers 1,000 ML PRIMARY IV SCH (07:15)
[2017-05-06] MEDS ORDERED: Ondansetron ODT Tab 8 MG TAB PO PRN (07:15)
[2017-05-06] MEDS ORDERED: Prochlorperazine Edisylate Inj 10mg/2ml vial IVP PRN (07:15)
[2017-05-06] MEDS ORDERED: ATROPINE SULFATE 0.4 MG/1 ML VIAL IVP PRN (07:15)
[2017-05-06] MEDS ORDERED: ONDANSETRON 4 MG/2 ML VIAL IVP PRN ×2 (07:15→12:43)
[2017-05-06] MEDS ORDERED: LIDOCAINE HCL 1%/EPI 1:100,000 - 20 ML VIAL ONE (07:21)
[2017-05-06] MEDS ORDERED: BUPIVACAINE 0.5% W/ EPI - 10 ML VIAL ONE (07:21)
[2017-05-06] MEDS ORDERED: MIDAZOLAM 5 MG/1 ML ONE (07:27)
[2017-05-06] MEDS ORDERED: fentaNYL Inj 250 MCG/5 ML VIAL ONE (07:28)
[2017-05-06] MEDS ORDERED: KETAMINE 100 MG/1 ML - 5 ML ONE (07:29)
[2017-05-06] MEDS ORDERED: ROCURONIUM 10 MG/1 ML - 5 ML VIAL IVP ONE ×2 (07:29→08:49)
[2017-05-06] MEDS ORDERED: ceFAZolin Inj 3 GM in Sodium Chloride 0.9% 100 ML IV ONE (07:30)
[2017-05-06] MEDS ORDERED: Sodium Chloride 0.9% vial 10 ML ONE (07:31)
[2017-05-06] MEDS ORDERED: LIDOCAINE MPF 2% - 5 ML (20 MG/1 ML) ONE (07:31)
[2017-05-06] MEDS ORDERED: PHENYLEPHRINE 10,000 MCG/1 ML VIAL ONE (08:38)
[2017-05-06] MEDS ORDERED: ePHEDrine Inj 50 MG/ML AMP ONE (09:36)
[2017-05-06] MEDS ORDERED: fentaNYL Inj 100 MCG/2 ML VIAL ONE (09:44)
[2017-05-06] MEDS ORDERED: Lactated Ringers 2,000 ML PRIMARY IV ONE (10:06)
[2017-05-06] MEDS ORDERED: Sodium Chloride 0.9% vial 30 ML ONE (10:22)
[2017-05-06] MEDS ORDERED: BUPivacaine Liposome/PF (Exparel) Inj 20ml vial INFIL ONE (10:23)
[2017-05-06] MEDS ORDERED: KETOROLAC 30 MG/1 ML VIAL ONE (10:23)
[2017-05-06] MEDS ORDERED: NEOSTIGMINE 1 MG/1 ML - 10 ML ONE (10:31)
[2017-05-06] MEDS ORDERED: DEXAMETHASONE PF 10 MG/1 ML VIAL ONE (10:31)
[2017-05-06] MEDS ORDERED: GLYCOPYRROLATE 0.2 MG/1 ML VIAL ONE (10:31)
--- NOTE | 2017-05-06 11:06 | GEN.OPNOTE ---
Operative Note Surgery Date: 05/06/17 Preoperative Diagnosis: Symptomatic recurrent and incarcerated incisional hernia. Postoperative Diagnosis: Symptomatic recurrent and incarcerated incisional hernia. Procedure: Reduction and repair recurrent and incarcerated incisional hernia with Marlex mesh onlay. Surgeon: Reese Sousa MD Anesthesia Provider: Emi Palmer CRNA Anesthesia Type: General Estimated Blood Loss (mL): 40 Fluids: 2600 mL of crystalloid. 3 g of IV Ancef at the start of the procedure. 30 mg of IV Toradol at the end of the procedure. Subcutaneous Exparel, 262 mg , at the end of the procedure. Pathology: Specimensforpathologicanalysis. Indications: Symptomatic recurrent and incarcerated incisional hernia. Findings: Lots of subcutaneous scar tissue. Lots of scar tissue and the fascia from prior repairs. 2 incisional hernias. One to the right side and one to the left side of the midline. Complications: None. Operative Summary: The patient was taken to the operating suite and placed on the operating table in a supine position. Following the induction of general anesthetic the abdomen was prepped and draped in a sterile fashion. A surgical timeout was done. An ellipse of skin was excised to remove all the prior incisions. Electrocautery was used to transect the subcutaneous fat down to the hernia. There was a tremendous amount of scar tissue in the subcutaneous tissue. Most of it was excised. The hernia was freed circumferentially down to the fascia. The fascial defect was enlarged. There is actually a second hernia to the left of the midline. This was all incorporated into one fascial defect. The fascia was trimmed back to adequate tissue. All the thickened scar tissue and prior suture material was removed. This left us with approximately a 5 inch long defect. The fascia was closed in the midline with running #1 Prolene. The subcutaneous tissue was cleared off the fat anteriorly. The fascia looked good. An oval shaped piece of Marlex mesh was cut to fit over the repair. It overlapped the midline repair by at least three quarters of an inch in all directions. It was sewn in circumferentially with 2-0 Prolene. Several simple stitches were placed down the middle of the mesh to tack it down. The wound was irrigated. Hemostasis was assured. The space was closed with 2-0 Vicryl. Exparel was diluted to 50 mL and injected into the subcutaneous tissue. The skin was closed with surgical timothy followed by an appropriate dressing. Patient tolerated the entire procedure well without complication. She was taken to outpatient surgery in stable condition. All counts were correct.
[2017-05-06] MEDS: HYDROmorphone 2 MG/1 ML IVP PRN ×4 (11:14→11:57)
[2017-05-06] MEDS ORDERED: HYDROmorphone 2 MG/1 ML ONE (11:14)
[2017-05-06] MEDS ORDERED: ONDANSETRON 4 MG/2 ML VIAL ONE (11:21)
[2017-05-06] MEDS ORDERED: MORPHINE SULFATE 2 MG/1 ML IVP PRN (12:43)
[2017-05-06] MEDS ORDERED: oxyCODONE-ACETAMINOPHEN 5-325 TAB PO PRN (12:43)
[2017-05-06] MEDS: Lactated Ringers 1,000 ML PRIMARY IV SCH (14:00)
[2017-05-06] MEDS: KETOROLAC 30 MG/1 ML VIAL IVP SCH ×2 (16:15→22:21)
[2017-05-06] MEDS ORDERED: CITALOPRAM 20 MG TABLET PO SCH (21:00)
[2017-05-06] MEDS ORDERED: LISINOPRIL 10 MG TABLET PO SCH (21:00)
[2017-05-07] MEDS: Lactated Ringers 1,000 ML PRIMARY IV SCH (00:03)
[2017-05-07 03:44] VITALS: RESP 20
[2017-05-07 03:52] LABS: BASOPHILS # (AUTO) 0.01 10*3/UL; BASOPHILS % (AUTO) 0.1 % (0-1); EOSINOPHILS # (AUTO) 0 10*3/UL; EOSINOPHILS % (AUTO) 0 % (0-8); HEMATOCRIT 39.1 % (37.0-47.0); HEMOGLOBIN 13.3 g/dL (12.0-16.0); LYMPHOCYTES # (AUTO) 1.01 10*3/uL; MEAN CORPUSCULAR VOLUME 91.1 FL (81-99); MONOCYTES # (AUTO) 0.96 10*3/UL (0.3-0.8); MONOCYTES % (AUTO) 6.8 % (5-15); NEUTROPHILS # (AUTO) 12.11 10*3/UL; NEUTROPHILS % (AUTO) 85.6 % (50-80); PLATELET MORPHOLOGY COMMENT NORMAL MORPHOLOGY (NORM); RBC MORPHOLOGY COMMENT NORMAL MORPHOLOGY (NORM); RED BLOOD COUNT 4.29 10^6/uL (4.20-5.40); WBC MORPHOLOGY COMMENT NORMAL MORPHOLOGY (NORM)
[2017-05-07 04:01] LABS: BLOOD UREA NITROGEN 12 mg/dL (7-22); BUN/CREATININE RATIO 17.14 (6-20); CALCIUM 10.2 mg/dL (8.7-10.7); EST GLOMERULAR FILTRATION > 60 (>60 ml/min/1.73m(2))
[2017-05-07] MEDS: KETOROLAC 30 MG/1 ML VIAL IVP SCH ×2 (04:35→09:37)
[2017-05-07 07:52] VITALS: TEMP 97.6
[2017-05-07] MEDS ORDERED: Montelukast Tab 10 MG TAB PO SCH (09:00)
[2017-05-07] MEDS ORDERED: CITALOPRAM 20 MG TABLET PO SCH (09:00)
[2017-05-07] MEDS ORDERED: LISINOPRIL 10 MG TABLET PO SCH (09:00)
--- NOTE | 2017-05-07 09:03 | DCSUMMARY ---
Discharge Summary Admit Date: 05/06/17 Discharge Date: 05/07/17 Admitting Diagnosis: recurrent and incarcerated incisional hernia. Status post herniorrhaphy Discharge Diagnosis: Same. Primary Surgery and Date: Reduction and repair recurrent and incarcerated incisional hernia with Marlex mesh onlay. 05/06/2017 Hospital Course: Patient was admitted postop for pain control. She has done remarkably well. She had one Percocet. Otherwise she is getting scheduled Toradol. Her wound was infiltrated with Exparel. She is ambulating frequently. She is tolerating a diet. There is no nausea. She is passing gas. She reports her pain is well controlled. She is voiding. She feels ready to go home and looks good. She meets all discharge criteria. We'll plan home today for outpatient follow-up. Exam - Vitals Vital Signs: Vital Signs Temperature 97.6 F Temperature Source Temporal Artery Scan Pulse Rate [Pulse Oximeter] 87 Pulse Rate 78 Respiratory Rate 20 Blood Pressure [Left Arm] 138/91 Blood Pressure 112/73 Pulse Ox 92 Oxygen Flow Rate 1.5 Oxygen Delivery Method Room Air Height 4 ft 11 in Weight 126.099 kg - General General Appearance: POSITIVE: No Acute Distress, Cooperative - Respiratory Respiratory Exam: POSITIVE: Clear to Auscultation - Bilaterally, Breathing Non Labored - Cardiovascular Cardiovascular Exam: POSITIVE: No Murmur - GI/Abdominal GI/Abdominal Exam: POSITIVE: Normal Bowel Sounds, Non Distended, Soft Additional GI/Abdominal Exam Details: Dressing is clean and dry and intact. Some incisional tenderness. Abdomen otherwise benign. - Neurological Neurological Exam: POSITIVE: Alert, Oriented x 3 - Psychiatric Psychiatric Exam: POSITIVE: Normal Affect, Normal Mood Data Procedures: Incisional herniorrhaphy with Marlex mesh onlay. Patient Problems - Patient Problem List (1) Recurrent incisional hernia Current Visit: Yes Status: Acute Priority: High Comment: Status post incisional herniorrhaphy. Was admitted to observation for pain control. Is doing very well. Meets all discharge criteria and will be discharged home for outpatient follow-up.
== END 2017-05-07 10:05 | disposition home or self-care (01) ==
LOC: SDSC 06:53 → MED/SURG 12:27
PROVIDERS: ADMIT Surgery; ATTEND Surgery
DX: K43.2 Incisional hernia without obstruction or gangrene (principal)
CPT/HCPCS: 36415; 49566; 49568; 80048; 85025; 94150; 94761; A4216; C9290; J0690; J1100; J1170; J1885 ×2; J2001; J2250; J2370; J2405; J2704; J2710; J3010 ×2; J7050; J7120

== ENCOUNTER → 2017-06-06 | Outpatient (CLI) | payer BC ==
[2017-06-06 11:18] LABS: BASOPHILS # (AUTO) 0.09 10*3/UL; BASOPHILS % (AUTO) 1.2 % (0-1); EOSINOPHILS # (AUTO) 0.27 10*3/UL; EOSINOPHILS % (AUTO) 3.7 % (0-8); HEMATOCRIT 38.5 % (37.0-47.0); HEMOGLOBIN 13.3 g/dL (12.0-16.0); MEAN CORPUSCULAR HEMOGLOBIN 31.2 PG (27-31); MEAN CORPUSCULAR HGB CONC 34.5 g/dL (33-37); MEAN CORPUSCULAR VOLUME 90.4 FL (81-99); MEAN PLATELET VOLUME 10.9 FL (7.4-12.2); MONOCYTES % (AUTO) 14.9 % (5-15); NEUTROPHILS % (AUTO) 61.1 % (50-80); RED BLOOD COUNT 4.26 10^6/uL (4.20-5.40)
[2017-06-06 11:23] LABS: PLATELET MORPHOLOGY COMMENT NORMAL MORPHOLOGY (NORM); RBC MORPHOLOGY COMMENT NORMAL MORPHOLOGY (NORM); WBC MORPHOLOGY COMMENT NORMAL MORPHOLOGY (NORM)
[2017-06-06 11:41] LABS: EST GLOMERULAR FILTRATION > 60 (>60 ml/min/1.73m(2))
[2017-06-06 11:42] LABS: HEMOGLOBIN A1C 5.37 % (4.2-6.0)
[2017-06-06 11:59] LABS: FREE T4 (FREE THYROXINE) 0.89 ng/dL (0.93-1.71)
[2017-06-06 12:44] LABS: BLOOD UREA NITROGEN 11 mg/dL (7-22); BUN/CREATININE RATIO 13.75 (6-20); CALCIUM 11.5 mg/dL (8.7-10.7)
[2017-06-06 12:45] LABS: CHOL/HDL RATIO 5.25 RATIO (0-4.0); HDL CHOLESTEROL 31 mg/dL (40-150); SERUM ALBUMIN 4.2 g/dL (3.5-4.8); SERUM CHOLESTEROL 163 mg/dL (120-200)
== END ==
LOC: MOB LAB 10:15
PROVIDERS: ATTEND Family Medicine
DX: I10 Essential (primary) hypertension (principal); E83.59 Other disorders of calcium metabolism; R13.14 Dysphagia, pharyngoesophageal phase; R53.83 Other fatigue; R06.81 Apnea, not elsewhere classified; K21.9 Gastro-esophageal reflux disease without esophagitis; F39 Unspecified mood [affective] disorder
CPT/HCPCS: 36415; 80053; 80061; 82306; 83036; 83735; 84439; 84443; 85025